=== PATIENT | male | born 1985 | race Caucasian/White ===

== ENCOUNTER 2016-11-10 22:15 | Inpatient (IN) | payer OTHER ==
[~2016-11-10] VITALS: Ht 185.4 cm; Wt 70.3 kg
--- NOTE | 2016-11-10 22:25 | ED.ADGEN ---
Past History Past Medical History: Asthma Past Surgical History: Other Additional Past Surgical Histo: Chest Tube Rt = Pneumothorax Adult General Chief Complaint Chief Complaint "... I...got......bad..... asthma.... I ...get ....really short..... of breath....." HPI HPI Patient is a 31 year old male [facility] prisoner who presents with above hx and complaints of asthma exacerbation starting again two days ago. Pt. has been most recently admitted to [facility] from [facility] were he has been a resident since June of 2015. Pt. states he has 2 or 3 asthma exacerbations a year, with seasonal and weather usually the trigger. Pt,. has never been intubated. Has past hx.of pneumothorax on the right. Pt. states he has been getting sick the past two weeks. Recent transfer in October to [facility]. Patient denies any specific ill contacts. Patient denies any history of immunosuppression. Patient denies any ingestion of illicit substances. Review of Systems Review of Systems Constitutional: Subjective history of fever and chills Eyes: Denies change in visual acuity, redness, or eye pain [] HENT: History of nasal congestion ] Respiratory: History of cough , wheezing and shortness of breath [] Cardiovascular: No additional information not addressed in HPI [] GI: Denies abdominal pain, nausea, vomiting, bloody stools or diarrhea [] : Denies dysuria or hematuria [] Musculoskeletal: Denies back pain or joint pain [] Integument: History of cystic acne Neurologic: Denies headache, focal weakness or sensory changes [] Endocrine: Denies polyuria or polydipsia [] Family History Family History Noncontributory Current Medications Current Medications Current Medications Medications (Trade) Dose Ordered Sig/Gary Start Time Stop Time Status Last Admin Dose Admin Albuterol/ Ipratropium (Duoneb) 3 ml 1X ONCE 11/10/16 23:15 11/10/16 23:16 DC 11/10/16 22:15 3 ML Azithromycin (Zithromax) 500 mg 1X ONCE 11/10/16 22:30 11/10/16 22:31 DC 11/10/16 22:30 500 MG Ceftriaxone Sodium (Rocephin Im) 1 gm 1X ONCE 11/10/16 22:30 11/10/16 22:31 DC Enoxaparin Sodium (Lovenox 80mg Syringe) 80 mg 1X ONCE 11/10/16 23:15 11/10/16 23:16 DC Info (Do NOT chart on this entry -- for MONITORING) 1 each PRN DAILY PRN 11/10/16 23:15 11/12/16 23:14 Iohexol (Omnipaque 300 Mg/ml) 75 ml 1X ONCE 11/10/16 23:15 11/10/16 23:16 DC 11/10/16 23:28 75 ML Lactated Ringer's 1,000 ml @ 1,000 mls/hr Q1H 11/10/16 22:30 11/10/16 23:11 DC 11/10/16 22:30 1,000 MLS/HR Magnesium Sulfate 50 ml @ 25 mls/hr 1X ONCE 11/10/16 22:30 11/11/16 00:29 DC 11/10/16 22:30 25 MLS/HR Allergies Allergies Allergies Coded Allergies Type Severity Reaction Last Updated Verified No Known Drug Allergies 11/10/16 No Physical Exam Physical Exam Constitutional: in acute distress, non-toxic appearance. [] HENT: Normocephalic, atraumatic, bilateral external ears normal, oropharynx dry , no oral exudates, nose normal. [] Eyes: PERRLA, EOMI, conjunctiva normal, no discharge. [] Neck: Normal range of motion, no tenderness, supple, no stridor. [] Cardiovascular: Tachycardic Heart rate regular rhythm, no murmur [] Lungs & Thorax: Bilateral breath sounds marked wheezing on auscultation, patient does have intercostal and supraclavicular retraction, tripod position, . Patient is having pursed lip breathing. Old chest tube scar right chest wall Abdomen: Bowel sounds normal, soft, no tenderness, no masses, no pulsatile masses. [] Skin: Warm, dry, no erythema, cystic acne Back: No tenderness, no CVA tenderness. [] Extremities: No tenderness, no cyanosis, no clubbing, ROM intact, no edema. No cording noted in legs Neurologic: Alert and oriented X 3, normal motor function, normal sensory function, no focal deficits noted. [] Psychologic: Affect normal, judgement normal, mood normal. [] Current Patient Data Vital Signs Vital Signs Date Time Temp Pulse Resp B/P (MAP) Pulse Ox O2 Delivery O2 Flow Rate FiO2 11/10/16 23:30 131 36 98 NonRebreather Mask 12.0 11/10/16 23:00 127/74 (91) 11/10/16 22:20 98.3 Lab Results Laboratory Tests Test 11/10/16 22:25 11/10/16 22:36 Blood pH 7.31 (7.35-7.46) L Blood Gas PCO2 45 mmHg (35-46) Blood Gas PO2 55 mmHg (80-100) L Blood Gas HCO3 23 mmol/L (21-28) Arterial Bld O2 Saturation (Calc) 85 % (92-99) L FiO2 40 % White Blood Count 16.9 x10^3/uL (4.0-11.0) H Red Blood Count 4.79 x10^6/uL (4.30-5.70) Hemoglobin 14.2 g/dL (13.0-17.5) Hematocrit 41.7 % (39.0-53.0) Mean Corpuscular Volume 87 fL (79-100) Mean Corpuscular Hemoglobin 30 pg (25-35) Mean Corpuscular Hemoglobin Concent 34 g/dL (31-37) Red Cell Distribution Width 14.4 % (11.5-14.5) Platelet Count 359 x10^3/uL (140-400) Neutrophils (%) (Auto) 67 % (31-73) Lymphocytes (%) (Auto) 22 % (24-48) L Monocytes (%) (Auto) 5 % (0-9) Eosinophils (%) (Auto) 5 % (0-3) H Basophils (%) (Auto) 1 % (0-3) Neutrophils # (Auto) 11.3 x10^3uL (1.8-7.7) H Lymphocytes # (Auto) 3.8 x10^3/uL (1.0-4.8) Monocytes # (Auto) 0.9 x10^3/uL (0.0-1.1) Eosinophils # (Auto) 0.8 x10^3/uL (0.0-0.7) H Basophils # (Auto) 0.1 x10^3/uL (0.0-0.2) Segmented Neutrophils % 64 % (35-66) Band Neutrophils % 1 % (0-9) Lymphocytes % 28 % (24-48) Monocytes % 3 % (0-10) Eosinophils % 4 % (0-5) Platelet Estimate Adequate (ADEQUATE) Giant Platelets Occ Prothrombin Time 11.0 SEC (9.4-11.4) Prothrombin Time INR 1.1 (0.9-1.1) PTT 22 SEC (23-33) L D-Dimer (Sheri) 1.32 mg/L (0.00-0.50) H Sodium Level 142 mmol/L (136-145) Potassium Level 3.9 mmol/L (3.5-5.1) Chloride Level 104 mmol/L (98-107) Carbon Dioxide Level 26 mmol/L (21-32) Anion Gap 12 (6-14) Blood Urea Nitrogen 5 mg/dL (8-26) L Creatinine 0.9 mg/dL (0.7-1.3) Estimated GFR (Cockcroft-Gault) 99.8 BUN/Creatinine Ratio 6 (6-20) Glucose Level 123 mg/dL (70-99) H Lactic Acid Level 2.7 mmol/L (0.4-2.0) H Calcium Level 9.7 mg/dL (8.5-10.1) Magnesium Level 1.9 mg/dL (1.8-2.4) Total Bilirubin 0.4 mg/dL (0.2-1.0) Direct Bilirubin 0.1 mg/dL (0.0-0.2) Aspartate Amino Transferase (AST) 22 U/L (15-37) Alanine Aminotransferase (ALT) 25 U/L (16-63) Alkaline Phosphatase 119 U/L (46-116) H Creatine Kinase 122 U/L (39-308) Creatine Kinase MB (Mass) 0.7 ng/mL (0.0-3.6) Creatine Kinase MB Relative Index 0.6 % (0-4) Troponin I Quantitative < 0.017 ng/mL (0-0.055) LY-Hgt-J-Type Natriuretic Peptide 87 pg/mL (0-124) Total Protein 8.3 g/dL (6.4-8.2) H Albumin 3.8 g/dL (3.4-5.0) Albumin/Globulin Ratio 0.8 (1.0-1.7) L Lipase 83 U/L (73-393) EKG EKG My interpretation of EKG shows a sinus tachycardia at 110 ,there are no findings of acute STEMI with contralateral changes.[] Radiology/Procedures Radiology/Procedures My interpretation of CXR shows patchy chronic pattern. Viral ? [] Course & Med Decision Making Course & Med Decision Making Pertinent Labs and Imaging studies reviewed. (See chart for details) Critical Care- 90 min. Discussed presentation, testing and treatment plan with Dr. Mariscal. [] Final Impression Final Impression 1. Respiratory Failure- hypoxic and hypercarbic 2. Asthma Exacerbation[] 3. Respiratory and metabolic acidosis 4. Elevated d-dimer 5. Leukocytosis 6..Axillary adenopathy 7. Pulmonary Nodular Changes 8. Elevated lactic acid Problems: Dragon Disclaimer Dragon Disclaimer This electronic medical record was generated, in whole or in part, using a voice recognition dictation system. ANNIA DENNIS MD Nov 10, 2016 22:25
[2016-11-10] MEDS ORDERED: IV RINGERS SOLUTION,LACTATED 1,000 ML IV SCH (22:30)
[2016-11-10] MEDS ORDERED: cefTRIAXone IM 1 GM VIAL IM ONE (22:30)
[2016-11-10] MEDS ORDERED: MAGNESIUM SULFATE 2GM 50 ML IV ONE (22:30)
[2016-11-10] MEDS ORDERED: AZITHROMYCIN 250 MG TABLET. PO ONE (22:30)
[2016-11-10 22:51] LABS: BGAS PH 7.31 (7.35-7.46)
[2016-11-10 22:53] LABS: BASO # 0.1 x10^3/uL (0.0-0.2); BASO % 1 % (0-3); EOS # 0.8 x10^3/uL (0.0-0.7); EOS % 5 % (0-3); HEMATOCRIT 41.7 % (39.0-53.0); HEMOGLOBIN 14.2 g/dL (13.0-17.5); LYMPH # 3.8 x10^3/uL (1.0-4.8); LYMPH % 22 % (24-48); MEAN CORPUSCULAR HEMOGLOBIN 30 pg (25-35); MEAN CORPUSCULAR HGB CONC 34 g/dL (31-37); MEAN CORPUSCULAR VOLUME 87 fL (79-100); MONO # 0.9 x10^3/uL (0.0-1.1); MONO % 5 % (0-9); NEUT # 11.3 x10^3uL (1.8-7.7); NEUT % 67 % (31-73); PLATELET COUNT 359 x10^3/uL (140-400); RED BLOOD COUNT 4.79 x10^6/uL (4.30-5.70); RED CELL DISTRIBUTION WIDTH 14.4 % (11.5-14.5); WHITE BLOOD COUNT 16.9 x10^3/uL (4.0-11.0)
[2016-11-10 23:12] LABS: ALBUMIN 3.8 g/dL (3.4-5.0); ALBUMIN/GLOBULIN RATIO 0.8 (1.0-1.7); CALCIUM 9.7 mg/dL (8.5-10.1); CREATININE 0.9 mg/dL (0.7-1.3); DIRECT BILIRUBIN 0.1 mg/dL (0.0-0.2); GFR 99.8; MAGNESIUM 1.9 mg/dL (1.8-2.4); POTASSIUM 3.9 mmol/L (3.5-5.1); TOTAL BILIRUBIN 0.4 mg/dL (0.2-1.0); TOTAL PROTEIN 8.3 g/dL (6.4-8.2)
[2016-11-10] MEDS ORDERED: CONTRAST GIVEN MC PRN (23:15)
[2016-11-10] MEDS ORDERED: ENOXAPARIN ** NOTE DOSE ** SYRINGE SQ ONE (23:15)
[2016-11-10] MEDS ORDERED: IPRATRPIUM/ALBUTEROL 0.5/2.5MG 3 ML NEBU. NEB ONE (23:15)
[2016-11-10] MEDS ORDERED: IOHEXOL 300 MG/ML 75 ML VIAL. IV ONE (23:15)
[2016-11-10 23:24] LABS: % BANDS 1 % (0-9); % EOS 4 % (0-5); % LYMPHS 28 % (24-48); % MONOS 3 % (0-10); % SEGS 64 % (35-66); PLT ESTIMATE ADEQUATE (ADEQUATE)
[2016-11-11] VITALS (20 sets, daily range): BP systolic 104–119; BP diastolic 52–79
--- NOTE | 2016-11-11 00:07 | RAD ---
INDICATION: [id number] Omni 300 75cc: PE protocol: Chest pain, short of air, cough, elevated d-dimer. COMPARISON: None. TECHNIQUE: Axial CT images obtained through the chest. Intravenous contrast utilized. Angiogram 3D images processed per protocol. One or more of the following individualized dose reduction techniques were utilized for this examination: 1. Automated exposure control; 2. Adjustment of the mA and/or kV according to patient size; 3. Use of iterative reconstruction technique. FINDINGS: Patchy nodular and groundglass opacities bilaterally. No evidence of pneumothorax. No thoracic aortic aneurysm. No evidence of thoracic aortic dissection. There are some mildly enlarged lymph nodes in the axilla bilaterally. For example right axilla measuring up to 14 mm short axis. Callus formation at left fifth rib. Could be from old fracture. No central pulmonary embolus IMPRESSION: 1. No central pulmonary embolus. 2. Patchy nodular groundglass opacities within the bilateral lungs. Could be infectious or inflammatory in nature. Neoplastic causes would be unlikely in a patient of this age unless they have a history of neoplasm. 3. Mildly enlarged bilateral axillary lymph nodes are identified of unknown etiology. Electronically signed by: Ty Infante MD (11/11/2016 12:04 AM) [facility]
[2016-11-11] MEDS ORDERED: ONDANSETRON PF 4 MG/2 ML VIAL. IV PRN (00:30)
[2016-11-11] MEDS ORDERED: IV NORMAL SALINE 1,000ML 1,000 ML IV ONE (00:45)
[2016-11-11] MEDS ORDERED: PANT40TA3 PO (02:10)
[2016-11-11] MEDS ORDERED: MONT10TA9 PO (02:10)
[2016-11-11] MEDS ORDERED: ALBU8.5H8 INH (02:10)
[2016-11-11] MEDS ORDERED: CETI10TA22 PO (02:10)
[2016-11-11 02:55] LABS: BILIRUBIN,URINE NEG (NEG); CLARITY,URINE CLEAR; COLOR,URINE YELLOW; GLUCOSE,URINE NEG (NEG); NITRITE,URINE NEG (NEG); UROBILINOGEN,URINE 0.2 mg/dL (0.2 mg/dL)
[2016-11-11 02:56] LABS: BACTERIA,URINE 0 /HPF (0-FEW); RBC,URINE 0 /HPF (0-2); WBC,URINE RARE /HPF (0-4)
[2016-11-11 03:02] LABS: AMPHETAMINE/METHAMPHETAMINE NEG (NEG); BARBITURATES NEG (NEG); BENZODIAZEPINES NEG (NEG); CANNABINOIDS NEG (NEG); COCAINE NEG (NEG); METHADONE NEG (NEG); OPIATES NEG (NEG); PHENCYCLIDINE NEG (NEG)
[2016-11-11 03:03] LABS: INFLUENZA A PATIENT NEGATIVE (NEGATIVE); INFLUENZA B PATIENT NEGATIVE (NEGATIVE)
[2016-11-11] MEDS ORDERED: ENOXAPARIN ** NOTE DOSE ** SYRINGE SQ ONE (03:30)
[2016-11-11] MEDS ORDERED: IPRATRPIUM/ALBUTEROL 0.5/2.5MG 3 ML NEBU. ONE (03:34)
[2016-11-11] MEDS ORDERED: methylPREDNISolone SOD SUCC PF 125 MG/2 ML VIAL. ONE (03:34)
[2016-11-11] MEDS: IPRATRPIUM/ALBUTEROL 0.5/2.5MG 3 ML NEBU. NEB SCH ×5 (05:05→23:57)
--- NOTE | 2016-11-11 05:57 | EKG ---
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
[2016-11-11] MEDS: methylPREDNISolone SOD SUCC PF 40 MG/ML VIAL. IV SCH (08:08)
[2016-11-11] MEDS: AZITHROMYCIN 250 MG TABLET. PO SCH (08:08)
--- NOTE | 2016-11-11 08:09 | RAD ---
Portable chest, 11/10/2016: History: Shortness of breath, respiratory failure The heart size is normal. The pulmonary vascularity is within normal limits. No pulmonary infiltrates are seen. There is no evidence of pleural fluid. IMPRESSION: No acute cardiopulmonary abnormality is detected.
[2016-11-11] MEDS ORDERED: guaiFENesin/PS-EPHED 600/60MG 1 TAB TAB.ER.12H PO SCH (09:00)
--- NOTE | 2016-11-11 09:13 | RAD ---
Indication elevated d-dimer. Recent travel. Grayscale color Doppler and spectral imaging was performed. The examination was targeted to the veins of the lower extremities. Bilaterally the common femoral, femoral and popliteal vessels demonstrate normal flow compressibility and augmentation. No thrombus is seen. The visualized calf veins, bilaterally, appeared unremarkable. IMPRESSION: Negative bilateral lower extremity venous analysis for DVT
[2016-11-11 11:27] LABS: BASO % 0 % (0-3); EOS % 0 % (0-3); HEMATOCRIT 39.9 % (39.0-53.0); HEMOGLOBIN 13.7 g/dL (13.0-17.5); LYMPH # 0.8 x10^3/uL (1.0-4.8); LYMPH % 11 % (24-48); MEAN CORPUSCULAR HEMOGLOBIN 30 pg (25-35); MEAN CORPUSCULAR HGB CONC 34 g/dL (31-37); MEAN CORPUSCULAR VOLUME 87 fL (79-100); MONO # 0.1 x10^3/uL (0.0-1.1); MONO % 1 % (0-9); NEUT # 6.5 x10^3uL (1.8-7.7); NEUT % 87 % (31-73); PLATELET COUNT 318 x10^3/uL (140-400); RED BLOOD COUNT 4.59 x10^6/uL (4.30-5.70); RED CELL DISTRIBUTION WIDTH 14.5 % (11.5-14.5); WHITE BLOOD COUNT 7.5 x10^3/uL (4.0-11.0)
[2016-11-11 11:41] LABS: ALBUMIN 3.6 g/dL (3.4-5.0); ALBUMIN/GLOBULIN RATIO 0.8 (1.0-1.7); CALCIUM 9.7 mg/dL (8.5-10.1); GFR 88.3; MAGNESIUM 2.3 mg/dL (1.8-2.4); POTASSIUM 4.7 mmol/L (3.5-5.1); TOTAL BILIRUBIN 0.3 mg/dL (0.2-1.0); TOTAL PROTEIN 8.3 g/dL (6.4-8.2)
--- NOTE | 2016-11-11 13:59 | HP ---
ADMIT DATE: 11/11/2016 HISTORY OF PRESENT ILLNESS: The patient is a 31-year-old male patient, [facility] prisoner who has recently moved to [place] about 5 days ago from [facility] where he has been a resident since 06/2015. He was brought to the Emergency Room complaining of shortness of breath, cough with scanty yellowish sputum that has been going on for the last few days. He, however, denied any chills, rigors, or fever. Denied any ill contact, was evaluated in the Emergency Room and was found to have leukocytosis and was admitted with diagnosis of acute asthma exacerbation with acute hypoxic respiratory failure. He has also elevated D-dimer, lactic acidosis. He was treated with albuterol and Atrovent as well as methylprednisone, was given also Lovenox and IV fluid. PAST MEDICAL HISTORY: 1. Significant for spontaneous pneumothorax, status post chest tube placement. 2. Bronchial asthma, started again after spontaneous pneumothorax according to him. PAST SURGICAL HISTORY: Significant for arthroscopic left knee surgery and right wrist fracture, status post open reduction and internal fixation. ALLERGIES: He has no known drug allergies. MEDICATIONS: He is on Singulair 10 mg at bedtime, Protonix 40 mg once a day, Zyrtec 10 mg once a day, ProAir 2 puffs every 6 hours as needed. FAMILY HISTORY: He has 2 older sisters who are healthy. Father at age of 49 in motor vehicle accident. Mother is alive at the age of 54 and is known to have hepatitis C. SOCIAL HISTORY: , has 1 son. He is an ex-smoker, quit in 05/2015 and also used to be a heavy alcohol drinker. He used to smoke methamphetamine. 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 REVIEW OF SYSTEMS: The patient denied any blurring of vision, cataract, glaucoma or macular degeneration. Denied any earache, tinnitus or sensorineural deafness. Denied any nosebleeds, stuffy nose or postnasal drip. Denied any sore throat, sore tongue, toothache, hoarseness of voice or difficulty swallowing. Denied any nausea, vomiting, diarrhea or constipation. Denied any hematemesis, melena or hematochezia. Denied any dysuria, frequency or hematuria. Did complain of shortness of breath on exertion. Denied any orthopnea or paroxysmal nocturnal dyspnea. He did complain of cough with scanty yellowish sputum. Denied any chills, rigors or fever. Denied any dizziness, lightheadedness, or vertigo. PHYSICAL EXAMINATION: GENERAL: On arrival to the Emergency Room, he was somewhat pale, but no jaundice, cyanosis, lymphadenopathy or thyromegaly. No jugular distension. No lower limb edema. VITAL SIGNS: Her heart rate was 64, blood pressure was 116/69, temperature was 98.4, respiratory rate was 19 and oxygen saturation was 99% on room air. HEENT: Showed he is normocephalic, atraumatic. NECK: Supple. HEART: Showed normal first and second heart sounds with no gallop, rub or murmur. CHEST: Shows central trachea, bilaterally equally reduced expansion, reduced air entry, vesicular sounds with bilateral scattered rhonchi. I could not appreciate any crepitation. ABDOMEN: Slightly distended, soft, nontender. No guarding or rigidity. No organomegaly. Hernial orifices intact. Bowel sounds normal. NEUROLOGIC: He was awake, alert, responding appropriately. All cranial nerves intact. EXTREMITIES: He moves extremities without difficulty, ambulates without assistance or assistive devices. His right wrist is in an short forearm cast. LABORATORY DATA: On admission showed that his serum sodium was 142, potassium 3.9, chloride 104, bicarbonate 26, anion gap 12, BUN 5, creatinine 0.9, estimated GFR was 99 mL per minute. His glucose was 123, calcium was 9.7. Magnesium was 1.9. Total bilirubin, AST, ALT, alkaline phosphatase were normal. His total protein was 8.3, albumin 3.8, lipase was 83. His white cell count was 16,900, hemoglobin 14, hematocrit 42, MCV 87 and platelet count 359,000 with normal manual differential. His blood gases showed a pH of 7.31, pCO2 of 45, pO2 of 55, bicarbonate 23, and oxygen saturation was 85% on FiO2 of 40%. His prothrombin time was 11, INR 1.1, aPTT was 22 and D-dimer was 2.3. Urinalysis was unremarkable. Urine was yellow, clear with a pH of 5.5, specific gravity 1.005. The urine was negative for protein, glucose, with trace of protein, negative for blood, nitrite and leukocyte esterase. Urine toxicology screen was negative. His chest x-ray showed that the heart is normal in size and pulmonary vascularity within normal limits. No pulmonary infiltrates are seen. There is no evidence of pleural fluid. Given elevation of his D-dimer, he had a CT scan of the chest with PE protocol, which showed that there was no central pulmonary emboli. It does show patchy nodular ground-glass opacities within the bilateral lungs, could be infectious or inflammatory in nature. Neoplastic cause would be unlikely in a patient of this age unless the ____ mildly enlarged bilaterally axillary lymph nodes identified, unknown etiology. ASSESSMENT AND PLAN: The patient was admitted with acute hypoxic hypercapnic respiratory failure, bronchial asthma exacerbation, has both metabolic and respiratory acidosis, elevated D-dimer, marked leukocytosis, axillary lymphadenopathy, pulmonary nodular changes. PLAN: Continue with bronchodilator. Continue with IV steroids. He is also on IV antibiotic in the form of ceftriaxone and Zithromax. Continue with oxygen supplementation and repeat all his lab work tomorrow and decide on further management accordingly. LENNY ALANIZ MD DR: SHARMIN/felix JOB#: [id number] / [id number]
[2016-11-11] MEDS: BENZONATATE 100 MG CAPSULE. PO PRN (17:30)
[2016-11-11] MEDS: MONTELUKAST 10 MG TABLET. PO SCH (20:52)
[2016-11-11] MEDS: ENOXAPARIN ** NOTE DOSE ** SYRINGE SQ SCH (20:53)
[2016-11-12] VITALS (19 sets, daily range): BP systolic 87–138; BP diastolic 52–85
[2016-11-12] MEDS: IPRATRPIUM/ALBUTEROL 0.5/2.5MG 3 ML NEBU. NEB SCH ×5 (05:47→22:03)
[2016-11-12 06:37] LABS: BASO % 0 % (0-3); EOS % 0 % (0-3); HEMATOCRIT 40.5 % (39.0-53.0); HEMOGLOBIN 13.6 g/dL (13.0-17.5); LYMPH # 1.6 x10^3/uL (1.0-4.8); LYMPH % 12 % (24-48); MEAN CORPUSCULAR HEMOGLOBIN 30 pg (25-35); MEAN CORPUSCULAR HGB CONC 34 g/dL (31-37); MEAN CORPUSCULAR VOLUME 89 fL (79-100); MONO % 8 % (0-9); NEUT # 11.2 x10^3uL (1.8-7.7); NEUT % 81 % (31-73); PLATELET COUNT 337 x10^3/uL (140-400); RED BLOOD COUNT 4.57 x10^6/uL (4.30-5.70); RED CELL DISTRIBUTION WIDTH 15.3 % (11.5-14.5); WHITE BLOOD COUNT 13.9 x10^3/uL (4.0-11.0)
[2016-11-12 06:54] LABS: ALBUMIN 3.8 g/dL (3.4-5.0); ALBUMIN/GLOBULIN RATIO 0.9 (1.0-1.7); CALCIUM 9.5 mg/dL (8.5-10.1); CREATININE 1.1 mg/dL (0.7-1.3); GFR 79.1; POTASSIUM 3.6 mmol/L (3.5-5.1); TOTAL BILIRUBIN 0.2 mg/dL (0.2-1.0); TOTAL PROTEIN 7.9 g/dL (6.4-8.2)
[2016-11-12 08:33] LABS: % LYMPHS 18 % (24-48); % MONOS 10 % (0-10); % SEGS 72 % (35-66); PLT ESTIMATE INCREASED (ADEQUATE)
[2016-11-12] MEDS: BENZONATATE 100 MG CAPSULE. PO PRN (10:01)
[2016-11-12] MEDS: AZITHROMYCIN 250 MG TABLET. PO SCH (10:01)
[2016-11-12] MEDS: ENOXAPARIN ** NOTE DOSE ** SYRINGE SQ SCH (10:02)
[2016-11-12] MEDS: cefTRIAXone IM 1 GM VIAL IM SCH (10:03)
[2016-11-12] MEDS: methylPREDNISolone SOD SUCC PF 40 MG/ML VIAL. IV SCH (10:03)
[2016-11-12] MEDS ORDERED: ENOXAPARIN 40 MG/0.4 ML DISP.SYRIN. SQ SCH (13:30)
[2016-11-12] MEDS: BENZONATATE 100 MG CAPSULE. PO SCH ×3 (14:00→21:17)
[2016-11-12 21:09] LABS: CYCLIC CITRULLIN PEP AB 4 units (0-19)
[2016-11-12] MEDS: ZINC TP SCH (21:17)
[2016-11-12] MEDS: MONTELUKAST 10 MG TABLET. PO SCH (21:17)
[2016-11-12] MEDS: DIPHENHYDRAMINE TP SCH (21:17)
--- NOTE | 2016-11-12 23:17 | PN ---
DATE: 11/12/2016 SUBJECTIVE: The patient is resting, slightly propped up in bed, in no apparent distress. He continued to have cough which is productive with mucopurulent sputum. He stated that he is feeling generally much better. The cough is much less compared to yesterday and more productive. PHYSICAL EXAMINATION: GENERAL: When I examined him, he looked well and was clearly in no apparent respiratory distress, pale. No jaundice, cyanosis, or thyromegaly. No jugular venous distention. No limb edema. VITAL SIGNS: Her heart rate was 103, blood pressure was 109/71, temperature was 97.1, respiratory rate was 17 and oxygen saturation was 97% on 4.5 liters of oxygen. HEAD, EYES, EARS, NOSE AND THROAT: Showed normocephalic and atraumatic. NECK: Supple. HEART: Showed normal first and second heart sounds with no gallop, rub or murmur. CHEST: Shows central trachea, equal bilateral chest expansion, air entry, vesicular sounds. I could not really appreciate any crepitation or rhonchi. ABDOMEN: Distended, soft, nontender. No guarding or rigidity. No organomegaly. Hernial orifices intact. Bowel sounds normal. NEUROLOGIC: He was awake, alert, responding appropriately. Cranial nerves intact. He moves all his extremities without difficulty. He ambulates without assistance or assistive devices. He is in short forearm cast for his right wrist fracture. His skin showed multiple skin lesions consistent with a folliculitis versus acne. His intake over the last 24 hours was 3400, output was 5600. LABORATORY DATA: As of this morning, his serum sodium 142, potassium 3.6, chloride 105, bicarbonate 25, anion gap of 12, BUN 12, creatinine 1.1, estimated GFR was 79 mL per minute. His glucose was 101, calcium was 9.5, magnesium was 2.3. Total bilirubin, AST, ALT, alkaline phosphatase were normal. His total protein was 7.9, albumin 3.8 and TSH was 0.577. His white cell count was slightly high at 13,900, hemoglobin 13.6, hematocrit 40.5, MCV 89 and platelet count 237,000. ASSESSMENT: 1. Acute hypoxic hypercapnic respiratory failure. 2. Bronchial asthma exacerbation, respiratory and metabolic acidosis, elevated D-dimer with negative CT scan and venous Doppler ultrasound for deep venous thrombosis and pulmonary embolism, axillary lymphadenopathy, pulmonary nodular changes. PLAN: To continue with IV steroids, continue bronchodilator. Continue IV antibiotic. Continue oxygen supplementation, titrated down. I will cut down his Lovenox to 40 mg once a day for DVT prophylaxis. Continue the benzonatate as well as Mucinex. LENNY ALANIZ MD DR: SHARMIN/felix JOB#: [id number] / [id number]
[2016-11-13] VITALS (17 sets, daily range): BP systolic 108–132; BP diastolic 63–83
[2016-11-13] MEDS: IPRATRPIUM/ALBUTEROL 0.5/2.5MG 3 ML NEBU. NEB SCH ×4 (06:03→16:03)
[2016-11-13 06:26] LABS: HEMATOCRIT 38.4 % (39.0-53.0); HEMOGLOBIN 12.9 g/dL (13.0-17.5); RED BLOOD COUNT 4.36 x10^6/uL (4.30-5.70); RED CELL DISTRIBUTION WIDTH 14.9 % (11.5-14.5); WHITE BLOOD COUNT 9.9 x10^3/uL (4.0-11.0)
[2016-11-13 06:28] LABS: CALCIUM 9.4 mg/dL (8.5-10.1); CREATININE 0.8 mg/dL (0.7-1.3); GFR 114.3; POTASSIUM 3.6 mmol/L (3.5-5.1)
[2016-11-13 09:09] LABS: ANTI-DS DNA <1 IU/mL (0-9)
[2016-11-13] MEDS: cefTRIAXone IM 1 GM VIAL IM SCH (09:48)
[2016-11-13] MEDS: methylPREDNISolone SOD SUCC PF 40 MG/ML VIAL. IV SCH (09:48)
[2016-11-13] MEDS: DIPHENHYDRAMINE TP SCH (09:49)
[2016-11-13] MEDS: BENZONATATE 100 MG CAPSULE. PO SCH ×2 (09:49→14:11)
[2016-11-13] MEDS: AZITHROMYCIN 250 MG TABLET. PO SCH (09:49)
[2016-11-13] MEDS: ZINC TP SCH (09:49)
[2016-11-13] MEDS ORDERED: ENOXAPARIN 40 MG/0.4 ML DISP.SYRIN. SQ SCH (13:00)
[2016-11-13] MEDS ORDERED: CEFP200T PO (14:26)
[2016-11-13] MEDS ORDERED: AZIT500T PO (14:26)
[2016-11-13] MEDS ORDERED: MONT10TA9 PO (14:26)
[2016-11-13] MEDS ORDERED: IPRA3AMP NEB (14:34)
[2016-11-13 18:08] LABS: ANA INTERP Negative (.)
--- NOTE | 2016-11-13 22:29 | DS ---
DATE OF DISCHARGE: 11/13/2016 HOSPITAL COURSE: The patient is a 31-year-old male patient, an inmate at the [facility], who was admitted with worsening shortness of breath, cough with mucopurulent sputum, has been going on for 2 days prior to admission. He was in fact admitted with acute asthma exacerbation, acute hypoxic hypercapnic respiratory failure, started on IV antibiotic and IV steroids as well as nebulizer which were Atrovent and Singulair. He actually did well, although continued to require oxygen at 3 liters nasal cannula. He desaturates whenever we tried to cut it down. I spoke with the director biologics of all the [facility] and he stated that he would like him to be back in their facility and they were able to provide him with continuous oxygen treatment and continue with antibiotic treatment. PHYSICAL EXAMINATION: GENERAL: When I examined him this afternoon, he looked well and was clearly in no apparent respiratory distress, pale. No jaundice, cyanosis, or thyromegaly. No jugular venous distention. No limb edema. VITAL SIGNS: His heart rate was 93, blood pressure 123/75, temperature was 95, respiratory rate was 20, and oxygen saturation was 95% on 3 liters of oxygen by nasal cannula. HEAD, EYES, EARS, NOSE, AND THROAT: Normocephalic, atraumatic. NECK: Supple. HEART: Showed normal first and second heart sounds with no gallop, rub, or murmur. CHEST: Clear to auscultation. No crepitation or rhonchi. ABDOMEN: Distended, soft, nontender. NEUROLOGIC: He was awake, alert, responding appropriately. Cranial nerves intact. He moves extremities without difficulty, ambulates without assistance or assistive devices. He has severe acneiform lesions throughout his back and anterior chest wall. His intake over the last 24 hours was 1300, output was 4350. His lab work this morning showed a white cell count of 9900, hemoglobin 13, hematocrit 38, MCV 88, and platelet count 302,000. His chemistry showed a serum sodium 141, potassium 3.6, chloride 106, bicarbonate 29, anion gap of 6, BUN 10, creatinine 0.8. Estimated GFR was 114 mL per minute. His glucose was 90 and calcium was 9.4. He was discharged back to [facility] to continue on Zithromax 500 mg once a day for 7 days, cefpodoxime proxetil 200 mg twice a day, ipratropium bromide and albuterol sulfate ____ mL 4 times a day, Singulair 10 mg once a day, albuterol sulfate 2 puffs every 2 hours, cetirizine mg once a day, montelukast sodium 1 tablet at bedtime, and Protonix 40 mg once a day. FINAL DISCHARGE DIAGNOSES: 1. Acute hypoxic hypercapnic respiratory failure. 2. Bronchial asthma exacerbation. 3. Mixed respiratory metabolic acidosis, resolved. 4. Elevated D-dimer with negative CT scan for PE protocol, negative venous Doppler ultrasound for deep vein thrombosis, axillary lymphadenopathy. 5. Pulmonary nodular changes. LENNY ALANIZ MD DR: SHARMIN/felix JOB#: [id number] / [id number]
--- NOTE | 2016-11-14 02:07 | PN ---
DATE: 11/13/2016 SUBJECTIVE: The patient is resting, almost flat in bed, in no apparent distress. He unfortunately continued to be saturating on exertion, his oxygen was cut down to 2.5 liters; however, with exertion, his oxygen saturation drops below 90. PHYSICAL EXAMINATION: GENERAL: When I examined him, he looked well and was clearly in no apparent respiratory distress, pale, no jaundice, cyanosis, or thyromegaly. No jugular venous distention. No limb edema. VITAL SIGNS: His heart rate was 93, blood pressure 123/75, temperature was 98, respiratory rate was 20, and oxygen saturation was 96%, on 3 liters of oxygen by nasal cannula. HEAD, EYES, EARS, NOSE, AND THROAT: Showed normocephalic, atraumatic. NECK: Supple. HEART: Showed normal first and second heart sounds with no gallop, rub or murmur. CHEST: Shows central trachea, equal bilateral expansion, air entry, vesicular breath sounds. No crepitation or rhonchi. ABDOMEN: Scaphoid, soft, and nontender. NEUROLOGIC: He is awake, alert, responding appropriately. Cranial nerves are intact. He moves extremities without difficulty, ambulates without assistance or assistive devices. His intake was 1290 and, output was 4350. LABORATORY DATA: As of this morning, his white cell count is 9900, hemoglobin 12.9, hematocrit 38.4, MCV 88, and platelet count 302,000. His chemistry showed a serum sodium 141, potassium 3.6, chloride 106, bicarbonate 29, anion gap of 6, BUN 10, creatinine 0.8, estimated GFR was 114 mL per minute. His glucose was 90, calcium was 9.4. ASSESSMENT: 1. Acute hypoxic hypercapnic respiratory failure, improving. 2. Bronchial asthma exacerbation. 3. Respiratory metabolic acidosis. 4. Elevated D-dimer with negative CT scan for pulmonary embolism and a negative venous Doppler ultrasound for deep vein thrombosis. 5. Axillary lymphadenopathy. 6. Pulmonary nodular changes. PLAN: Continue with the current plan of management. Continue to titrate her oxygen down and once he did not require any oxygen, he can be discharged. LENNY ALANIZ MD DR: SHARMIN/felix JOB#: [id number] / [id number]
== END 2016-11-13 20:55 | disposition home or self-care (01) | DRG 189 ==
LOC: EEVIPCON 22:15 → ER 22:15 → ICU 11-11 00:10
PROVIDERS: ADMIT Family Medicine; ATTEND Family Medicine
DX: J96.01 Acute respiratory failure with hypoxia (principal); E87.4 Mixed disorder of acid-base balance; J45.901 Unspecified asthma with (acute) exacerbation; J93.83 Other pneumothorax; D72.829 Elevated white blood cell count, unspecified; F15.90 Other stimulant use, unspecified, uncomplicated; R79.1 Abnormal coagulation profile; J96.02 Acute respiratory failure with hypercapnia; R59.0 Localized enlarged lymph nodes; Z87.891 Personal history of nicotine dependence
CPT/HCPCS: 36415; 71010; 71275; 80048; 80053; 80076; 80307; 81001; 82164; 82553; 82803; 82947; 83605; 83690; 83735; 83880; 84443; 84484; 85007; 85025; 85027; 85379; 85610; 85730; 86200; 87040; 87071; 87075; 87205; 87641; 87801; 87804; 93005; 93970; 94250; 94640; 94660; 96365; 96366; 99292; J0456; J0696; J1650; J2920; J3475; J7120; J7620; Q9967; 99291-25; G0479

== ENCOUNTER 2016-12-06 08:53 | Inpatient (IN) | payer OTHER ==
[2016-12-06] VITALS (13 sets, daily range): BP systolic 94–135; BP diastolic 55–93
[~2016-12-06] VITALS: Ht 180.3 cm; Wt 69.9 kg
[~2016-12-06 08:53] MED LIST: ALBU8.5H8 INH; AZIT500T PO; CEFP200T PO; CETI10TA22 PO; IPRA3AMP NEB; MONT10TA9 PO; PANT40TA3 PO
[2016-12-06] MEDS ORDERED: IPRATRPIUM/ALBUTEROL 0.5/2.5MG 3 ML NEBU. NEB ONE (09:00)
[2016-12-06] MEDS ORDERED: IV NORMAL SALINE 1,000ML 1,000 ML IV SCH (09:00)
[2016-12-06] MEDS ORDERED: IPRATRPIUM/ALBUTEROL 0.5/2.5MG 3 ML NEBU. ONE (09:01)
--- NOTE | 2016-12-06 09:07 | PHYS DOC ---
Past History Past Medical History: Asthma Past Surgical History: Other Additional Past Surgical Histo: Chest Tube Rt = Pneumothorax Alcohol Use: None Drug Use: None Adult General Chief Complaint Chief Complaint: ASTHMA HPI HPI Patient is a 31 year old male who presents with complaint of respiratory distress. Patient was brought to the emergency department by EMS from [facility] after they were called there for respiratory distress. The patient was noted to be in severe respiratory distress, tripoding, and satting only 86% on 3 L nasal cannula. Patient has history of asthma and was recently admitted to the hospital on November 11, 2016 for acute respiratory failure. Upon EMS arrival, the patient was given IV Solu-Medrol, IM epinephrine , and started on CPAP. The patient also received DuoNeb and albuterol treatments prior to arrival with minimal relief. The patient currently unable to provide further history due to severe respiratory distress. EMS reports at the patient had been complaining of left-sided chest wall pain for the past 2 days prior to symptom onset. Review of Systems Review of Systems Unable to obtain at this time, patient currently on breathing mask and unable to provide history. Current Medications Current Medications Current Medications Medications (Trade) Dose Ordered Sig/Gary Start Time Stop Time Status Last Admin Dose Admin Albuterol/ Ipratropium (Duoneb) 3 ml 1X ONCE 12/06/16 09:00 12/06/16 09:01 UNV Magnesium Sulfate/ Dextrose 100 ml @ 100 mls/hr 1X ONCE 12/06/16 09:15 12/06/16 10:14 UNV Sodium Chloride 1,000 ml @ 1,000 mls/hr Q1H 12/06/16 09:00 12/06/16 09:59 UNV Allergies Allergies Allergies Coded Allergies Type Severity Reaction Last Updated Verified No Known Drug Allergies 11/10/16 No Physical Exam Physical Exam Constitutional: Alert, afebrile, tachycardic, CPAP mask in place, appears in severe respiratory distress. [] HENT: Normocephalic, atraumatic, bilateral external ears normal, oropharynx moist, no oral exudates, nose normal. [] Eyes: PERRLA, EOMI, conjunctiva normal, no discharge. [] Neck: Normal range of motion, no tenderness, supple, no stridor. [] Cardiovascular: Tachycardia, regular rhythm, no murmur [] Lungs & Thorax: Prolonged expiratory phase, moderate to severe restriction of air movement bilaterally, expiratory wheezes bilaterally, accessory muscle usage present[] Abdomen: Bowel sounds normal, soft, no tenderness, no masses, no pulsatile masses. [] Skin: Warm, dry, no erythema, no rash. [] Back: No tenderness, no CVA tenderness. [] Extremities: No tenderness, no cyanosis, no clubbing, ROM intact, no edema. [] Neurologic: Alert and oriented X 3, normal motor function, normal sensory function, no focal deficits noted. [] Current Patient Data Vital Signs Vital Signs Date Time Temp Pulse Resp B/P (MAP) Pulse Ox O2 Delivery O2 Flow Rate FiO2 12/06/16 08:55 99.0 137 30 94 BiPAP/CPAP Lab Results Laboratory Tests Test 12/06/16 09:02 White Blood Count 19.2 x10^3/uL Red Blood Count 5.04 x10^6/uL Hemoglobin 15.1 g/dL Hematocrit 44.3 % Mean Corpuscular Volume 88 fL Mean Corpuscular Hemoglobin 30 pg Mean Corpuscular Hemoglobin Concent 34 g/dL Red Cell Distribution Width 14.5 % Platelet Count 347 x10^3/uL Neutrophils (%) (Auto) 52 % Lymphocytes (%) (Auto) 26 % Monocytes (%) (Auto) 8 % Eosinophils (%) (Auto) 13 % Basophils (%) (Auto) 1 % Neutrophils # (Auto) 10.0 x10^3uL Lymphocytes # (Auto) 5.0 x10^3/uL Monocytes # (Auto) 1.5 x10^3/uL Eosinophils # (Auto) 2.5 x10^3/uL Basophils # (Auto) 0.1 x10^3/uL Platelet Estimate Pending Sodium Level 141 mmol/L Potassium Level 3.5 mmol/L Chloride Level 104 mmol/L Carbon Dioxide Level 28 mmol/L Anion Gap 9 Blood Urea Nitrogen 10 mg/dL Creatinine 0.8 mg/dL Estimated GFR (Cockcroft-Gault) 114.3 BUN/Creatinine Ratio 13 Glucose Level 139 mg/dL Calcium Level 9.3 mg/dL Total Bilirubin 0.7 mg/dL Aspartate Amino Transf (AST/SGOT) 18 U/L Alanine Aminotransferase (ALT/SGPT) 27 U/L Alkaline Phosphatase 88 U/L Total Protein 7.6 g/dL Albumin 4.1 g/dL Albumin/Globulin Ratio 1.2 ABG significant for PCO2 46. PO2 noted to be 106 on 35% FiO2. Current Medications Medications (Trade) Dose Ordered Sig/Gary Route PRN Reason Start Time Stop Time Status Last Admin Dose Admin Albuterol/ Ipratropium (Duoneb) 3 ml STK-MED ONCE .ROUTE 12/06/16 09:01 12/06/16 09:02 DC Sodium Chloride 1,000 ml @ 1,000 mls/hr Q1H IV 12/06/16 09:00 12/06/16 09:59 12/06/16 09:23 Albuterol/ Ipratropium (Duoneb) 3 ml 1X ONCE NEB 12/06/16 09:00 12/06/16 09:10 DC 12/06/16 09:33 Magnesium Sulfate/ Dextrose 100 ml @ 100 mls/hr 1X ONCE IV 12/06/16 09:15 12/06/16 10:14 12/06/16 09:15 EKG EKG Interpreted by me: Heart rate 139, sinus tachycardia, normal intervals, normal axis, no acute ST/T-wave abnormalities present[] Radiology/Procedures Radiology/[place] [address] IMAGING REPORT Signed PATIENT: CRYSTAL MAJANO ACCOUNT: [id number] : 1985 LOCATION: ER AGE: 31 SEX: M EXAM STATUS: PRE ER ORD. PHYSICIAN: HAWK PELAEZ MD REASON: shortness of breath PROCEDURE: PORTABLE CHEST 1V Chest x-ray Indication: Shortness of breath Technique: Portable AP upright chest x-ray Comparison: Previous study from 11/10/2016 Findings: Heart is normal in size. Lungs are clear. No pneumothorax or pleural effusion. Visualized bony thorax within normal limits. Impression: No acute cardiopulmonary process. No significant change when compared to prior study from 11/11/2016. DICTATED AND SIGNED BY: TOM CROOK DO DATE: 12/06/16923 CC: HAWK PELAEZ MD; PCP,NO ~ [] Course & Med Decision Making Course & Med Decision Making Pertinent Labs and Imaging studies reviewed. (See chart for details) Patient was started on BiPAP therapy and given 1 g of magnesium as well as 1 DuoNeb treatment. The patient's work of breathing has significantly improved at this time. The patient continues to be tachycardic though this has improved to 118 bpm at this time. The patient has been stabilized with BiPAP therapy at this time. The patient will need admission for further treatment. I spoke with Dr. Baker who accepted care of patient in hospital. Critical care time excluding procedures: 40 minutes Dragon Disclaimer Dragon Disclaimer This chart was dictated in whole or in part using Voice Recognition software in a busy, high-work load, and often noisy Emergency Department environment. It may contain unintended and wholly unrecognized errors or omissions. Departure Departure: Impression: Primary Impression: Acute respiratory failure with hypoxia and hypercapnia Additional Impression: Acute severe asthma Disposition: 09 ADMITTED INPATIENT Admitting Physician: Winsome Baker Condition: CRITICAL Referrals: PCP,NO (PCP) Problem Qualifiers HAWK PELAEZ MD Dec 06, 2016 09:07
--- NOTE | 2016-12-06 09:13 | EKG ---
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
[2016-12-06 09:14] LABS: BASO # 0.1 x10^3/uL (0.0-0.2); BASO % 1 % (0-3); EOS # 2.5 x10^3/uL (0.0-0.7); EOS % 13 % (0-3); HEMATOCRIT 44.3 % (39.0-53.0); HEMOGLOBIN 15.1 g/dL (13.0-17.5); LYMPH % 26 % (24-48); MEAN CORPUSCULAR HEMOGLOBIN 30 pg (25-35); MEAN CORPUSCULAR HGB CONC 34 g/dL (31-37); MEAN CORPUSCULAR VOLUME 88 fL (79-100); MONO # 1.5 x10^3/uL (0.0-1.1); MONO % 8 % (0-9); NEUT % 52 % (31-73); PLATELET COUNT 347 x10^3/uL (140-400); RED BLOOD COUNT 5.04 x10^6/uL (4.30-5.70); RED CELL DISTRIBUTION WIDTH 14.5 % (11.5-14.5); WHITE BLOOD COUNT 19.2 x10^3/uL (4.0-11.0)
[2016-12-06] MEDS ORDERED: MAGNESIUM SULFATE 1GM 100 ML IV ONE (09:15)
[2016-12-06 09:28] LABS: ALBUMIN 4.1 g/dL (3.4-5.0); ALBUMIN/GLOBULIN RATIO 1.2 (1.0-1.7); CALCIUM 9.3 mg/dL (8.5-10.1); CREATININE 0.8 mg/dL (0.7-1.3); GFR 114.3; POTASSIUM 3.5 mmol/L (3.5-5.1); TOTAL BILIRUBIN 0.7 mg/dL (0.2-1.0); TOTAL PROTEIN 7.6 g/dL (6.4-8.2)
--- NOTE | 2016-12-06 09:28 | RAD ---
Chest x-ray Indication: Shortness of breath Technique: Portable AP upright chest x-ray Comparison: Previous study from 11/10/2016 Findings: Heart is normal in size. Lungs are clear. No pneumothorax or pleural effusion. Visualized bony thorax within normal limits. Impression: No acute cardiopulmonary process. No significant change when compared to prior study from 11/11/2016.
[2016-12-06 09:53] LABS: BGAS PH 7.38 (7.35-7.46)
[2016-12-06] MEDS ORDERED: ONDANSETRON PF 4 MG/2 ML VIAL. IV PRN (10:00)
[2016-12-06] MEDS ORDERED: ACETAMINOPHEN 325 MG TABLET PO PRN (10:00)
[2016-12-06 10:23] LABS: % BASOS 2 % (0-3); % EOS 7 % (0-5); % LYMPHS 26 % (24-48); % MONOS 16 % (0-10); % SEGS 49 % (35-66); PLT ESTIMATE ADEQUATE (ADEQUATE)
[2016-12-06] MEDS: IPRATRPIUM/ALBUTEROL 0.5/2.5MG 3 ML NEBU. NEB SCH ×3 (11:25→19:57)
[2016-12-06] MEDS ORDERED: methylPREDNISolone SOD SUCC PF 40 MG/ML VIAL. IV SCH (12:00)
[2016-12-06] MEDS ORDERED: ALBU8.5H8 INH (12:01)
[2016-12-06] MEDS ORDERED: PRED20TA PO (12:01)
[2016-12-06] MEDS ORDERED: FLUT1AER8 IH (12:01)
[2016-12-06] MEDS ORDERED: TRET20CR13 TP (12:01)
[2016-12-06] MEDS ORDERED: BENZ60GE TP (12:01)
--- NOTE | 2016-12-06 13:58 | HP ---
ADMIT DATE: 12/06/2016 REASON FOR ADMISSION: Acute hypercapnic respiratory failure. HISTORY OF PRESENT ILLNESS: This is a 31-year-old male who is a [facility] prisoner in [place] and who has had a previous admission on 11/11/2016 for acute hypoxic hypercapnic respiratory failure. Today, [facility] to [facility] with his complaint of respiratory arrest. When EMS arrived, they found him to be satting only 86% on 3 liters, tachycardic and tachypneic. The EMS personnel gave him IV Solu-Medrol, IM epinephrine and he was started on CPAP. He also received a DuoNeb treatment. These only helped minimally and the patient was switched to BiPAP in the Emergency Room. PAST MEDICAL HISTORY: Spontaneous pneumothorax in the past, hospitalization on 11/11/2016 with again hypoxic hypercapnic respiratory failure. He has allergic asthma. PAST SURGICAL HISTORY: Arthroscopic left knee surgery, right wrist fracture, had his open reduction and internal fixation. The fracture was in July and he still has evidently ____, this may be due to his chronic prednisone therapy. ALLERGIES: None. MEDICATIONS: Singulair 10 mg, Zyrtec 10 mg daily, ProAir 2 puffs every 6 hours and prednisone currently on I believe 20 mg a day. FAMILY HISTORY: Two older sisters are healthy. Father at age 49 in a motor vehicle accident. Mother is alive at 54 with hepatitis C. SOCIAL HISTORY: He is , has 1 son, ex-smoker, quit in 2016, also was a heavy alcohol drinker and he used to smoke methamphetamine. 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 REVIEW OF SYSTEMS: Denies sore throat. Denies fever. Positive shortness of breath. He states he may have a lung infection, but no sputum production. The rest is negative. PHYSICAL EXAMINATION: GENERAL: The patient is on BiPAP currently. VITAL SIGNS: Blood pressure 121/77, pulse 115, respirations 20, pulse ox is 97% on BiPAP and CPAP, temperature is 99. HEENT: His throat is clear. He has a lot of mucus. NECK: Supple. LUNGS: Clear on the right, wheezing on the left. CARDIOVASCULAR: Regular rhythm and rate. Anterior left wheezes as well. ABDOMEN: Soft, nontender. EXTREMITIES: Without edema. SKIN: He does have some scarring from acne noted on his face and on his back. LABORATORY DATA: Normal CMP with random glucose, it is slightly elevated at 139. ABG: pCO2 of 47, pO2 108, pH is normal. CBC: White count 19.2, but he has been on prednisone. He also has ____ eosinophils, no bands. ASSESSMENT: 1. Acute hypercapnic respiratory failure. 2. Chronic prednisone therapy. 3. Allergic asthma. 4. Ex-smoker. 5. Right forearm fracture -- present on admission. PLAN: Currently on BiPAP. We will attempt to wean off when he is more comfortable. Continue breathing treatments. Continue with Singulair and IV steroids. MARY VILLASEÑOR DO DR: HOWARD/felix JOB#: [id number] / [id number]
[2016-12-06] MEDS: methylPREDNISolone SOD SUCC PF 125 MG/2 ML VIAL. IV SCH ×2 (14:21→21:12)
[2016-12-06] MEDS: IV NORMAL SALINE 1,000ML 1,000 ML IV SCH ×2 (14:21→20:47)
[2016-12-06] MEDS ORDERED: ALBUTEROL SULFATE 8GM INHALER. INH PRN ×2 (14:30)
[2016-12-06] MEDS ORDERED: CONTRAST GIVEN MC PRN (17:45)
[2016-12-06] MEDS ORDERED: IOHEXOL 300 MG/ML 75 ML VIAL. IV ONE (17:45)
--- NOTE | 2016-12-06 18:29 | RAD ---
CTA Chest with contrast: Clinical History: SHORT OF AIR, RESPIRATORY DISTRESS, ABNORMAL CTA CHEST 3 WEEKS AGO
75MLS OMNI 300 IV CONTRAST
PRIOR CTA CHEST SENT
Shortness of breath. Axial helical images of the chest were obtained after the administration of 75 cc of IV Omni 300 and timed appropriately for a pulmonary arterial study. Conventional axial reconstruction was performed in addition to coronal, sagittal and bilateral oblique MIP (maximum intensity projection). This study was ordered to detect possible pulmonary embolism. There are no filling defects to suggest pulmonary embolism. Description The lungs and pleural margins are clear. There is no mediastinal or hilar lymphadenopathy. The thoracic aorta appears normal. There is bilateral gynecomastia. Impression: 1. No evidence of pulmonary embolism. 2. No acute findings. PQRS Compliance Statement: One or more of the following individualized dose reduction techniques were utilized for this examination: 1. Automated exposure control 2. Adjustment of the mA and/or kV according to patient size 3. Use of iterative reconstruction technique Electronically signed by: Brennon Coyne III, MD (12/06/2016 6:26 PM) [id number]
[2016-12-06 20:03] LABS: BARBITURATES NEG (NEG); BENZODIAZEPINES NEG (NEG); CANNABINOIDS NEG (NEG); COCAINE NEG (NEG); METHADONE NEG (NEG); OPIATES NEG (NEG); PHENCYCLIDINE NEG (NEG)
[2016-12-06 20:07] LABS: BILIRUBIN,URINE NEG (NEG); CLARITY,URINE CLEAR; COLOR,URINE STRAW; GLUCOSE,URINE 100 mg/dL (NEG); NITRITE,URINE NEG (NEG); UROBILINOGEN,URINE 0.2 mg/dL (0.2 mg/dL)
[2016-12-06 20:10] LABS: AMPHETAMINE/METHAMPHETAMINE NEG (NEG)
[2016-12-06 20:14] LABS: BACTERIA,URINE 0 /HPF (0-FEW); RBC,URINE 0 /HPF (0-2); WBC,URINE 0 /HPF (0-4)
[2016-12-06] MEDS: MONTELUKAST 10 MG TABLET. PO SCH (20:48)
[2016-12-07] VITALS (20 sets, daily range): BP systolic 100–154; BP diastolic 49–82
[2016-12-07] MEDS: IV NORMAL SALINE 1,000ML 1,000 ML IV SCH ×2 (02:52→05:37)
[2016-12-07] MEDS: methylPREDNISolone SOD SUCC PF 125 MG/2 ML VIAL. IV SCH ×3 (05:37→20:16)
[2016-12-07] MEDS: IPRATRPIUM/ALBUTEROL 0.5/2.5MG 3 ML NEBU. NEB SCH ×2 (05:59→09:28)
[2016-12-07 08:24] LABS: HEMATOCRIT 39.9 % (39.0-53.0); HEMOGLOBIN 13.6 g/dL (13.0-17.5); RED BLOOD COUNT 4.55 x10^6/uL (4.30-5.70); RED CELL DISTRIBUTION WIDTH 15.2 % (11.5-14.5); WHITE BLOOD COUNT 11.5 x10^3/uL (4.0-11.0)
[2016-12-07] MEDS: CETIRIZINE HCL 10 MG TABLET PO SCH (08:28)
[2016-12-07] MEDS: PANTOPRAZOLE 40 MG TABLET. PO SCH (08:28)
[2016-12-07 08:34] LABS: CALCIUM 8.9 mg/dL (8.5-10.1); CREATININE 0.7 mg/dL (0.7-1.3); GFR 133.3; POTASSIUM 3.8 mmol/L (3.5-5.1)
--- NOTE | 2016-12-07 10:42 | PDOC ---
PROGRESS NOTES Assessment 1. Acute on chronic respiratory failure: Pt is currently requiring 3-4 liters O2 at rest, and after any exertion requires BIPAP and becomes extremely tachypneic. CT angio of the chest failed to reveal any abnormalities. In fact, the ground glass findings and LAD that was seen 3 weeks ago was not present on this exam. Pt reports that for the past 2 years, the only thing that helps at all is high-dose steroids. My plan is to continue IV steroids and bronchodilators. WBC improved, likely steroid-induced. No indication for abx. I will speak w/ pulmonology at [facility] about any additional workup that could be done. I do not think it would be appropriate to discharge him until he is able to exert himself without requiring BIPAP. 2. Right arm fracture: Pt has had a cast since July (per pt). He needs to see ortho nena after discharge. 3. DVT proph: I will start on Lovenox, pt is not moving much. 4. GI proph: W/ high dose steroids, will treat w/ Pepcid daily. 5. DIsp: See above. Problems: Plan of Care: see other orders Subjective Pt reports that he is feeling "a little better," but only while he rests in bed. He denies chest pain. His CXR and CT's have not shown any evidence of cardiac enlargement or aortic issues. He reports having seen pulmonology a few months ago, but says there were several tests ordered and he never had any of them done. Objective Vital Signs Date Time Temp Pulse Resp B/P (MAP) Pulse Ox O2 Delivery O2 Flow Rate FiO2 12/07/16 09:29 97 Nasal Cannula 4.0 12/07/16 09:10 75 20 116/69 (85) 12/07/16 05:59 97.8 Intake and Output 12/08/16 07:00 Intake Total 240 ml Output Total 0 ml Balance 240 ml Intake Oral 240 ml Output Urine Total 0 ml Abdomen: Normal bowel sounds, Soft, No tenderness Heart: Normal S1, Normal S2, No murmurs, Other (Slightly tachy, especially with even minor exertion) Extremities: No edema, Normal pulses General: Alert, Oriented X3, Cooperative, mild distress HEENT: Atraumatic, PERRLA, EOMI, Mucous membr. moist/pink Lungs: Other (Resp effort is mildly labored with mild tachypnea and no retractions. Coarse breath sounds are scattered and improve w/ coughing.) Neck: No JVD, No thyromegaly Neuro: Normal speech, Strength at 5/5 X4 ext, Normal tone, Sensation intact, Cranial nerves 3-12 NL Psych/Mental Status: Mental status NL, Mood NL Skin: No rashes Review of Relevant I have reviewed the following items ny (where applicable) has been applied. Labs Laboratory Tests Test 12/06/16 09:02 12/06/16 09:07 12/06/16 10:45 12/06/16 19:40 White Blood Count 19.2 x10^3/uL (4.0-11.0) Red Blood Count 5.04 x10^6/uL (4.30-5.70) Hemoglobin 15.1 g/dL (13.0-17.5) Hematocrit 44.3 % (39.0-53.0) Mean Corpuscular Volume 88 fL (79-100) Mean Corpuscular Hemoglobin 30 pg (25-35) Mean Corpuscular Hemoglobin Concent 34 g/dL (31-37) Red Cell Distribution Width 14.5 % (11.5-14.5) Platelet Count 347 x10^3/uL (140-400) Neutrophils (%) (Auto) 52 % (31-73) Lymphocytes (%) (Auto) 26 % (24-48) Monocytes (%) (Auto) 8 % (0-9) Eosinophils (%) (Auto) 13 % (0-3) Basophils (%) (Auto) 1 % (0-3) Neutrophils # (Auto) 10.0 x10^3uL (1.8-7.7) Lymphocytes # (Auto) 5.0 x10^3/uL (1.0-4.8) Monocytes # (Auto) 1.5 x10^3/uL (0.0-1.1) Eosinophils # (Auto) 2.5 x10^3/uL (0.0-0.7) Basophils # (Auto) 0.1 x10^3/uL (0.0-0.2) Segmented Neutrophils % 49 % (35-66) Lymphocytes % 26 % (24-48) Monocytes % 16 % (0-10) Eosinophils % 7 % (0-5) Basophils % 2 % (0-3) Platelet Estimate Adequate (ADEQUATE) Sodium Level 141 mmol/L (136-145) Potassium Level 3.5 mmol/L (3.5-5.1) Chloride Level 104 mmol/L (98-107) Carbon Dioxide Level 28 mmol/L (21-32) Anion Gap 9 (6-14) Blood Urea Nitrogen 10 mg/dL (8-26) Creatinine 0.8 mg/dL (0.7-1.3) Estimated GFR (Cockcroft-Gault) 114.3 BUN/Creatinine Ratio 13 (6-20) Glucose Level 139 mg/dL (70-99) Calcium Level 9.3 mg/dL (8.5-10.1) Magnesium Level 2.3 mg/dL (1.8-2.4) Total Bilirubin 0.7 mg/dL (0.2-1.0) Aspartate Amino Transf (AST/SGOT) 18 U/L (15-37) Alanine Aminotransferase (ALT/SGPT) 27 U/L (16-63) Alkaline Phosphatase 88 U/L (46-116) Total Protein 7.6 g/dL (6.4-8.2) Albumin 4.1 g/dL (3.4-5.0) Albumin/Globulin Ratio 1.2 (1.0-1.7) Blood Gas pH 7.38 (7.35-7.46) Blood Gas PCO2 47 mmHg (35-46) Blood Gas PO2 108 mmHg (80-100) Blood Gas HCO3 27 mmol/L (21-28) Arterial Bld O2 Saturation (Calc) 98 % (92-99) FiO2 35 % Nasal Screen MRSA (PCR) Negative (Negative) Urine Collection Type Unknown Urine Color Straw Urine Clarity Clear Urine pH 7.0 Urine Specific [place] 1.010 Urine Protein Neg (NEG-TRACE) Urine Glucose (UA) 100 mg/dL (NEG) Urine Ketones (Stick) Neg mg/dL (NEG) Urine Blood Small (NEG) Urine Nitrite Neg (NEG) Urine Bilirubin Neg (NEG) Urine Urobilinogen Dipstick 0.2 mg/dL (0.2 mg/dL) Urine Leukocyte Esterase Neg (NEG) Urine RBC 0 /HPF (0-2) Urine WBC 0 /HPF (0-4) Urine Squamous Epithelial Cells None /LPF Urine Bacteria 0 /HPF (0-FEW) Urine Opiates Screen Neg (NEG) Urine Methadone Screen Neg (NEG) Urine Barbiturates Neg (NEG) Urine Phencyclidine Screen Neg (NEG) Urine Amphetamine/Methamphetamine Neg (NEG) Urine Benzodiazepines Screen Neg (NEG) Urine Cocaine Screen Neg (NEG) Urine Cannabinoids Screen Neg (NEG) Urine Ethyl Alcohol Neg (NEG) Test 12/07/16 08:15 White Blood Count 11.5 x10^3/uL (4.0-11.0) Red Blood Count 4.55 x10^6/uL (4.30-5.70) Hemoglobin 13.6 g/dL (13.0-17.5) Hematocrit 39.9 % (39.0-53.0) Mean Corpuscular Volume 88 fL (79-100) Mean Corpuscular Hemoglobin 30 pg (25-35) Mean Corpuscular Hemoglobin Concent 34 g/dL (31-37) Red Cell Distribution Width 15.2 % (11.5-14.5) Platelet Count 271 x10^3/uL (140-400) Sodium Level 141 mmol/L (136-145) Potassium Level 3.8 mmol/L (3.5-5.1) Chloride Level 108 mmol/L (98-107) Carbon Dioxide Level 25 mmol/L (21-32) Anion Gap 8 (6-14) Blood Urea Nitrogen 10 mg/dL (8-26) Creatinine 0.7 mg/dL (0.7-1.3) Estimated GFR (Cockcroft-Gault) 133.3 Glucose Level 141 mg/dL (70-99) Calcium Level 8.9 mg/dL (8.5-10.1) Medications Current Medications Albuterol/ Ipratropium (Duoneb) 3 ml STK-MED ONCE .ROUTE ; Start 12/06/16 at 09: 01; Stop 12/06/16 at 09:02; Status DC Sodium Chloride 1,000 ml @ 1,000 mls/hr Q1H IV Last administered on 12/06/16 09:23; Start 12/06/16 at 09:00; Stop 12/06/16 at 10:00; Status DC Albuterol/ Ipratropium (Duoneb) 3 ml 1X ONCE NEB Last administered on 09:33; Start 12/06/16 at 09:00; Stop 12/06/16 at 09:10; Status DC Magnesium Sulfate/ Dextrose 100 ml @ 100 mls/hr 1X ONCE IV Last administered on 12/06/16 09:15; Start 12/06/16 at 09:15; Stop 12/06/16 at 10:14; Status DC Ondansetron HCl (Zofran) 4 mg PRN Q4HRS PRN IV NAUSEA/VOMITING; Start 12/06/16 at 10:00; Stop 12/07/16 at 09:59; Status DC Sodium Chloride 1,000 ml @ 150 mls/hr Q6H40M IV Last administered on 05:37; Start 12/06/16 at 10:00; Stop 12/07/16 at 09:59; Status DC Acetaminophen (Tylenol) 650 mg PRN Q4HRS PRN PO FEVER; Start 12/06/16 at 10:00 ; Stop 12/07/16 at 09:59; Status DC Albuterol/ Ipratropium (Duoneb) 3 ml RTQID NEB Last administered on 12/07/16 09:28; Start 12/06/16 at 12:00; Stop 12/07/16 at 11:59 Methylprednisolone Sodium Succinate (SOLU-Medrol 40MG VIAL) 60 mg Q6HRS IV ; Start 12/06/16 at 12:00; Stop 12/06/16 at 12:00; Status DC Methylprednisolone Sodium Succinate (SOLU-Medrol 125MG VIAL) 125 mg Q8HRS IV Last administered on 12/07/16 05:37; Start 12/06/16 at 14:00 Albuterol Sulfate (Ventolin) 2.5 mg PRN Q4HRS PRN NEB SHORTNESS OF BREATH; Start 12/06/16 at 11:45 Albuterol Sulfate (Ventolin Hfa) 1 puff PRN Q6HRS PRN INH SHORTNESS OF BREATH; Start 12/06/16 at 14:30; Stop 12/06/16 at 14:30; Status DC Albuterol Sulfate (Ventolin Hfa) 2 puff PRN Q6HRS PRN INH SHORTNESS OF BREATH; Start 12/06/16 at 14:30; Stop 12/06/16 at 14:30; Status DC Cetirizine HCl (ZyrTEC) 10 mg DAILY PO Last administered on 12/07/16 08:28; Start 12/07/16 at 09:00 Montelukast Sodium (Singulair) 10 mg QHS PO Last administered on 12/06/16 20: 48; Start 12/06/16 at 21:00 Pantoprazole Sodium (Protonix) 40 mg DAILY PO Last administered on 12/07/16 08 :28; Start 12/07/16 at 09:00 Iohexol (Omnipaque 300 Mg/ml) 75 ml 1X ONCE IV Last administered on 12/06/16 17:59; Start 12/06/16 at 17:45; Stop 12/06/16 at 17:47; Status DC Info (Do NOT chart on this entry -- for MONITORING) 1 each PRN DAILY PRN MC SEE COMMENTS; Start 12/06/16 at 17:45; Stop 12/08/16 at 17:44 Active Scripts Active Duoneb 0.5-3(2.5) Mg/3 Ml (Albuterol/Ipratropium) 3 Ml Ampul.neb 3 Ml NEB QID 30 Days Reported Airduo Respiclick 232-14 Mcg (Fluticasone/Salmeterol) 1 Each Aer.pow.ba 1 Each IH Tretinoin 20 Gm Cream..g. 1 Toy TP QHS Bp Gel (Benzoyl Peroxide) 60 Gm Gel..gram. 60 Gm TP Proair Hfa Inhaler (Albuterol Sulfate) 8.5 Gm Hfa.aer.ad 1 Puff INH PRN Q6HRS PRN Prednisone 20 Mg Tablet 20 Mg PO DAILY Proair Hfa Inhaler (Albuterol Sulfate) 8.5 Gm Hfa.aer.ad 2 Puff INH PRN Q6HRS PRN Protonix (Pantoprazole Sodium) 40 Mg Tablet. 1 Tab PO DAILY Montelukast Sodium Tablet (Montelukast Sodium) 10 Mg Tablet 1 Tab PO DAILY Zyrtec (Cetirizine Hcl) 10 Mg Tablet 1 Tab PO DAILY Vitals/I & O Vital Sign - Last 24 Hours 12/06/16 12/06/16 12/06/16 12/06/16 10:45 11:00 11:00 11:25 Temp 97.9 Pulse 115 113 Resp 20 24 B/P (MAP) 121/77 (92) 128/81 (97) Pulse Ox 95 98 96 O2 Delivery BiPAP/CPAP BiPAP/CPAP Bi-pap 12/06/16 12/06/16 12/06/16 12/06/16 12:00 12:00 12:46 13:06 Temp 97.9 Pulse 109 113 103 Resp 20 22 19 B/P (MAP) 94/57 (69) 128/81 (97) 135/82 (99) Pulse Ox 94 98 97 O2 Delivery Bi-pap Nasal Cannula BiPAP/CPAP Nasal Cannula O2 Flow Rate 3.0 3.0 12/06/16 12/06/16 12/06/16 12/06/16 14:00 15:00 16:10 16:10 Temp 98.0 97.2 Pulse 95 100 105 Resp 18 22 24 B/P (MAP) 103/64 (77) 134/93 (107) 132/89 (103) Pulse Ox 93 94 96 O2 Delivery Nasal Cannula BiPAP/CPAP Bi-pap BiPAP/CPAP O2 Flow Rate 3.0 12/06/16 12/06/16 12/06/16 12/06/16 17:09 17:22 18:50 19:49 Pulse 96 96 Resp 19 24 B/P (MAP) 132/55 (80) 125/79 (94) Pulse Ox 96 94 96 96 O2 Delivery Nasal Cannula BiPAP/CPAP BiPAP/CPAP O2 Flow Rate 4.0 12/06/16 12/06/16 12/06/16 12/06/16 20:00 20:07 20:27 21:01 Temp 97.7 Pulse 104 Resp 20 B/P (MAP) 121/77 (92) Pulse Ox 96 95 O2 Delivery Bi-pap BiPAP/CPAP 12/06/16 12/06/16 12/06/16 12/06/16 22:00 22:11 23:13 23:50 Pulse 117 122 79 Resp 22 17 B/P (MAP) 124/81 (95) 125/88 (100) 113/68 (83) Pulse Ox 96 95 95 98 O2 Delivery BiPAP/CPAP BiPAP/CPAP BiPAP/CPAP 12/07/16 12/07/16 12/07/16 12/07/16 00:12 00:52 01:25 02:00 Pulse 59 54 Resp 14 15 B/P (MAP) 109/63 (78) 103/54 (70) Pulse Ox 97 97 98 O2 Delivery Bi-pap BiPAP/CPAP BiPAP/CPAP 12/07/16 12/07/16 12/07/16 12/07/16 02:58 04:16 04:17 05:06 Pulse 61 110 61 Resp 14 18 18 B/P (MAP) 110/60 (77) 100/49 (66) 109/81 (90) Pulse Ox 97 94 97 O2 Delivery BiPAP/CPAP Nasal Cannula Nasal Cannula BiPAP/CPAP O2 Flow Rate 4.0 4.0 12/07/16 12/07/16 12/07/16 12/07/16 05:59 06:00 07:27 08:20 Temp 97.8 Pulse 86 71 Resp 18 28 B/P (MAP) 119/79 (92) 116/68 (84) Pulse Ox 97 97 97 O2 Delivery BiPAP/CPAP BiPAP/CPAP Bi-pap 12/07/16 12/07/16 12/07/16 12/07/16 08:23 08:33 09:10 09:29 Pulse 97 75 Resp 24 20 B/P (MAP) 116/74 (88) 116/69 (85) Pulse Ox 95 98 97 O2 Delivery Nasal Cannula Room Air BiPAP/CPAP Nasal Cannula O2 Flow Rate 4.0 4.0 4.0 Intake and Output 12/07/16 12/07/16 12/08/16 15:00 23:00 07:00 Intake Total 240 ml Output Total 0 ml Balance 240 ml Images CTA Chest with contrast: Clinical History: SHORT OF AIR, RESPIRATORY DISTRESS, ABNORMAL CTA CHEST 3 WEEKS AGO
75MLS OMNI 300 IV CONTRAST
PRIOR CTA CHEST SENT
Shortness of breath. Axial helical images of the chest were obtained after the administration of 75 cc of IV Omni 300 and timed appropriately for a pulmonary arterial study. Conventional axial reconstruction was performed in addition to coronal, sagittal and bilateral oblique MIP (maximum intensity projection). This study was ordered to detect possible pulmonary embolism. There are no filling defects to suggest pulmonary embolism. Description The lungs and pleural margins are clear. There is no mediastinal or hilar lymphadenopathy. The thoracic aorta appears normal. There is bilateral gynecomastia. Impression: 1. No evidence of pulmonary embolism. 2. No acute findings. PQRS Compliance Statement: One or more of the following individualized dose reduction techniques were utilized for this examination: 1. Automated exposure control 2. Adjustment of the mA and/or kV according to patient size 3. Use of iterative reconstruction technique AINSLEY VILLAFUERTE MD Dec 07, 2016 10:42
[2016-12-07] MEDS: ENOXAPARIN 40 MG/0.4 ML DISP.SYRIN. SQ SCH (12:56)
[2016-12-07] MEDS: BENZONATATE 100 MG CAPSULE. PO SCH ×3 (12:56→20:16)
[2016-12-07] MEDS ORDERED: traMADol 50 MG TABLET PO PRN (14:00)
--- NOTE | 2016-12-07 15:46 | PDOC ---
PROVIDER NOTE PROVIDER NOTE PROVIDER NOTE CARDIOLOGY CONSULTATION NOTE REASON FOR CONSULT: Dyspnea Patient is a pleasant 31 y.o man who presented to the hospital with progressive dyspnea. On 11/10 he was admitted with dyspnea. Found to have approximately 5% eosinophils. Discharged on steroids. While on 40mg daily, he feels fine. When he goes to 20mg he has done poorly Symptoms all started 2 yrs ago after a spontaneous PTX He denies any chest pain now but has cough. No issues while growing up, no history of asthma in the family. No prior diagnosis of granulomatous disease. 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 On singulair. Now on IV steroids and albuterol. ROS: Negative for 12/14 systems reviewed. Exam: Pox-95% on 3L, HR 100, BP-124/78 A/O x 3, NAD CVS: RRR, no m/r/g PULM: Bilateral extensive wheezing and rhonchi. ABD: Soft, NT/ND +BS EXT: No edema. 2+ left radial, PT pulses. NEURO: Non-focal exam. Diagnostic Testing: CTA - No acute pathology. EKG - Unremarkable ABG - High A-a gradient. Normal ph CBC - notable for high wbc with eosinophils noted. Echo - pending Impression: 1. Recurrent hypoxic respiratory failure- highly suspicious for eosinophilic/ allergic issues rather than cardiac disease. He has no murmurs. Recs: 1. If echo normal, would re-discuss with pulmonary regarding bronchoscopy and/ or high resolution chest CT and/or biopsy. 2. If echo is abnormal or he has pulmonary HTN, will then proceed with RHC etc. 3. Low suspicion for shunt, clinically he is quite wheezy and appears to be source of his hypoxia. Thanks for consult. Discussed with Dr. Mariscal. GISELA SCHROEDER MD Dec 07, 2016 15:46
--- NOTE | 2016-12-07 16:29 | CARD ---
APPROVED REPORT EXAM: Two-dimensional and M-mode echocardiogram with Doppler, color Doppler with contrast. Other Information Quality : Average Rhythm : Tachycardia INDICATION Dyspnea Echo Enhancing Agent Indication: Rule Out Septal Defect Agent/Amount Used: Agitated Trntdo1fS 2D DIMENSIONS Left Atrium(2D)2.8 (1.6-4.0cm)IVSd0.6 (0.7-1.1cm) Aortic Root(2D)2.7 (2.0-3.7cm)LVDd5.1 (3.9-5.9cm) LVOT Diameter2.0 (1.8-2.4cm)PWd0.6 (0.7-1.1cm) LVDs3.2 (2.5-4.0cm)FS (%) 36.8 % SV80.6 mlLVEF(%)66.4 (>50%) Aortic Valve AoV Peak Lior.150.0cm/sAoV VTI25.4cm AO Peak GR.9.0mmHgLVOT Peak Lior.114.6cm/s LVOT VTI 19.52cmAO Mean GR.5mmHg RICK (VMAX)2.12fc5JZE (VTI)2.42cm2 Mitral Valve MV E Ytqadvpj77.5cm/sMV DECEL PVRP212de MV A Bqvurdxh936.8cm/sE/A Ratio0.7 LEFT VENTRICLE The left ventricle is normal size. There is normal left ventricular wall thickness. Left ventricle sy stolic function is normal. The Ejection Fraction is 65-70%. There is normal LV segmental wall motion. Tissue Doppler imaging reveals mild left ventricular diastolic dysfunction. Transmitral Doppler flow pattern is Grade I-abnormal relaxation pattern. There is no ventricular septal defect visualized. RIGHT VENTRICLE The right ventricle is normal size. The right ventricular systolic function is normal. ATRIA The left atrium size is normal. The right atrium size is normal. The interatrial septum is intact wit h no evidence for an atrial septal defect or patent foramen ovale as noted on 2-D or Doppler imaging. Injection of bubbles demonstrated a small PFO with right to left shunting. AORTIC VALVE The aortic valve is normal in structure and function. The aortic valve is trileaflet. Doppler and Col or Flow revealed no significant aortic regurgitation. There is no significant aortic valvular stenosi s. MITRAL VALVE The mitral valve is normal in structure and function. There is no mitral valve stenosis. Doppler and Color Flow revealed no mitral valve regurgitation noted. TRICUSPID VALVE The tricuspid valve is normal in structure and function. Doppler and Color Flow revealed no tricuspid valve regurgitation noted. Unable to estimate PA pressure. There is no tricuspid valve stenosis. PULMONIC VALVE The pulmonic valve is not well visualized. Doppler and Color Flow revealed no pulmonic valvular regur gitation. There is no pulmonic valvular stenosis. GREAT VESSELS The aortic root is normal in size. Pulmonary veins not recorded. The IVC is normal in size and collap ses >50% with inspiration. PERICARDIAL EFFUSION There is no evidence of significant pericardial effusion. Critical Notification Critical Value: No <Conclusion> Left ventricle systolic function is normal. The Ejection Fraction is 65-70%. There is normal LV segmental wall motion. The right ventricle is normal size. The interatrial septum is intact with no evidence for an atrial septal defect or patent foramen ovale as noted on 2-D or Doppler imaging. Injection of bubbles demonstrated a small PFO with right to left shunting. Doppler and Color Flow revealed no tricuspid valve regurgitation noted. Unable to estimate PA pressur e. Of note, small size PFO does not account for degree of hypoxia. Plan for transfer to [facility] for RHC and ALF on friday.
[2016-12-07] MEDS: ALBUTEROL SULFATE 2.5 MG/3 ML NEBU. NEB PRN (20:04)
[2016-12-07] MEDS: MONTELUKAST 10 MG TABLET. PO SCH (20:16)
[2016-12-08] VITALS (19 sets, daily range): BP systolic 102–162; BP diastolic 57–93
[2016-12-08] MEDS: ALBUTEROL SULFATE 2.5 MG/3 ML NEBU. NEB PRN ×4 (05:24→20:04)
[2016-12-08] MEDS: methylPREDNISolone SOD SUCC PF 125 MG/2 ML VIAL. IV SCH ×3 (06:02→20:25)
[2016-12-08] MEDS: BENZONATATE 100 MG CAPSULE. PO SCH ×3 (08:35→20:25)
[2016-12-08] MEDS: PANTOPRAZOLE 40 MG TABLET. PO SCH (08:35)
[2016-12-08] MEDS: CETIRIZINE HCL 10 MG TABLET PO SCH (08:36)
[2016-12-08] MEDS: ENOXAPARIN 40 MG/0.4 ML DISP.SYRIN. SQ SCH (12:01)
--- NOTE | 2016-12-08 13:59 | PDOC ---
PROGRESS NOTES Assessment 1. Acute on chronic respiratory failure: Pt is improved today. No BIPAP required. Review of [facility] records performed and are in pt's chart. It appears pt has eosinophilia and severe allergies to several environmental allergens. He was offered Xolair but refused due to cost and risk of SE's. He is on Singulair , Claritin, and is supposed to be on Advair or Symbicort. It was also recommended at some point that he have desensitization performed, but that has not happened. He will need a very long steroid taper and close f/u with pulmonology (and possibly Immunology). Pt may be ready for d/c tomorrow, though I would like him to be off O2, at least at rest. I will add back his home meds. 2. Right arm fracture: Pt has had a cast since July (per pt). He needs to see ortho nena after discharge. 3. DVT proph: Lovenox. CTA neg for PE. 4. GI proph: Continue current meds. 5. Disp: Plan for at least one more night, pt is improving. Taper steroids. Problems: Plan of Care: see other orders Subjective Pt is feeling better today but still extremely SOA when stands up and moves around at all. Pt denies fever, abd pain, vomiting, or MAYA. Pt states he declined Xolair therapy due to the risk of SE's and cost. Objective Vital Signs Date Time Temp Pulse Resp B/P (MAP) Pulse Ox O2 Delivery O2 Flow Rate FiO2 12/08/16 13:04 78 24 141/76 (97) 91 Nasal Cannula 2.0 12/08/16 09:26 97.5 Intake and Output 12/09/16 07:00 Intake Total 540 ml Output Total 700 ml Balance -160 ml Intake Oral 540 ml Output Urine Total 700 ml Abdomen: Soft, No tenderness Heart: Regular rate, Normal S1, Normal S2, No murmurs Extremities: No edema, Normal pulses General: Alert, Oriented X3, Cooperative, No acute distress HEENT: PERRLA, EOMI, Mucous membr. moist/pink Lungs: Other (Scattered expiratory wheezes that improve w/ coughing. Resp effort is non-labored.) Neck: No JVD, No LAD Neuro: Normal speech, Normal tone, Cranial nerves 3-12 NL Psych/Mental Status: Mental status NL, Mood NL Skin: No rashes Review of Relevant I have reviewed the following items ny (where applicable) has been applied. Labs Laboratory Tests Test 12/06/16 19:40 12/07/16 08:15 Urine Collection Type Unknown Urine Color Straw Urine Clarity Clear Urine pH 7.0 Urine Specific Avalon 1.010 Urine Protein Neg (NEG-TRACE) Urine Glucose (UA) 100 mg/dL (NEG) Urine Ketones (Stick) Neg mg/dL (NEG) Urine Blood Small (NEG) Urine Nitrite Neg (NEG) Urine Bilirubin Neg (NEG) Urine Urobilinogen Dipstick 0.2 mg/dL (0.2 mg/dL) Urine Leukocyte Esterase Neg (NEG) Urine RBC 0 /HPF (0-2) Urine WBC 0 /HPF (0-4) Urine Squamous Epithelial Cells None /LPF Urine Bacteria 0 /HPF (0-FEW) Urine Opiates Screen Neg (NEG) Urine Methadone Screen Neg (NEG) Urine Barbiturates Neg (NEG) Urine Phencyclidine Screen Neg (NEG) Urine Amphetamine/Methamphetamine Neg (NEG) Urine Benzodiazepines Screen Neg (NEG) Urine Cocaine Screen Neg (NEG) Urine Cannabinoids Screen Neg (NEG) Urine Ethyl Alcohol Neg (NEG) White Blood Count 11.5 x10^3/uL (4.0-11.0) Red Blood Count 4.55 x10^6/uL (4.30-5.70) Hemoglobin 13.6 g/dL (13.0-17.5) Hematocrit 39.9 % (39.0-53.0) Mean Corpuscular Volume 88 fL (79-100) Mean Corpuscular Hemoglobin 30 pg (25-35) Mean Corpuscular Hemoglobin Concent 34 g/dL (31-37) Red Cell Distribution Width 15.2 % (11.5-14.5) Platelet Count 271 x10^3/uL (140-400) Sodium Level 141 mmol/L (136-145) Potassium Level 3.8 mmol/L (3.5-5.1) Chloride Level 108 mmol/L (98-107) Carbon Dioxide Level 25 mmol/L (21-32) Anion Gap 8 (6-14) Blood Urea Nitrogen 10 mg/dL (8-26) Creatinine 0.7 mg/dL (0.7-1.3) Estimated GFR (Cockcroft-Gault) 133.3 Glucose Level 141 mg/dL (70-99) Calcium Level 8.9 mg/dL (8.5-10.1) Medications Current Medications Albuterol/ Ipratropium (Duoneb) 3 ml STK-MED ONCE .ROUTE ; Start 12/06/16 at 09: 01; Stop 12/06/16 at 09:02; Status DC Sodium Chloride 1,000 ml @ 1,000 mls/hr Q1H IV Last administered on 12/06/16 09:23; Start 12/06/16 at 09:00; Stop 12/06/16 at 10:00; Status DC Albuterol/ Ipratropium (Duoneb) 3 ml 1X ONCE NEB Last administered on 09:33; Start 12/06/16 at 09:00; Stop 12/06/16 at 09:10; Status DC Magnesium Sulfate/ Dextrose 100 ml @ 100 mls/hr 1X ONCE IV Last administered on 12/06/16 09:15; Start 12/06/16 at 09:15; Stop 12/06/16 at 10:14; Status DC Ondansetron HCl (Zofran) 4 mg PRN Q4HRS PRN IV NAUSEA/VOMITING; Start 12/06/16 at 10:00; Stop 12/07/16 at 09:59; Status DC Sodium Chloride 1,000 ml @ 150 mls/hr Q6H40M IV Last administered on 05:37; Start 12/06/16 at 10:00; Stop 12/07/16 at 09:59; Status DC Acetaminophen (Tylenol) 650 mg PRN Q4HRS PRN PO FEVER; Start 12/06/16 at 10:00 ; Stop 12/07/16 at 09:59; Status DC Albuterol/ Ipratropium (Duoneb) 3 ml RTQID NEB Last administered on 12/07/16 09:28; Start 12/06/16 at 12:00; Stop 12/07/16 at 11:59; Status DC Methylprednisolone Sodium Succinate (SOLU-Medrol 40MG VIAL) 60 mg Q6HRS IV ; Start 12/06/16 at 12:00; Stop 12/06/16 at 12:00; Status DC Methylprednisolone Sodium Succinate (SOLU-Medrol 125MG VIAL) 125 mg Q8HRS IV Last administered on 12/08/16 06:02; Start 12/06/16 at 14:00 Albuterol Sulfate (Ventolin) 2.5 mg PRN Q4HRS PRN NEB SHORTNESS OF BREATH Last administered on 12/08/16 09:24; Start 12/06/16 at 11:45 Albuterol Sulfate (Ventolin Hfa) 1 puff PRN Q6HRS PRN INH SHORTNESS OF BREATH; Start 12/06/16 at 14:30; Stop 12/06/16 at 14:30; Status DC Albuterol Sulfate (Ventolin Hfa) 2 puff PRN Q6HRS PRN INH SHORTNESS OF BREATH; Start 12/06/16 at 14:30; Stop 12/06/16 at 14:30; Status DC Cetirizine HCl (ZyrTEC) 10 mg DAILY PO Last administered on 12/08/16 08:36; Start 12/07/16 at 09:00 Montelukast Sodium (Singulair) 10 mg QHS PO Last administered on 12/07/16 20: 16; Start 12/06/16 at 21:00 Pantoprazole Sodium (Protonix) 40 mg DAILY PO Last administered on 12/08/16 08 :35; Start 12/07/16 at 09:00 Iohexol (Omnipaque 300 Mg/ml) 75 ml 1X ONCE IV Last administered on 12/06/16 17:59; Start 12/06/16 at 17:45; Stop 12/06/16 at 17:47; Status DC Info (Do NOT chart on this entry -- for MONITORING) 1 each PRN DAILY PRN MC SEE COMMENTS; Start 12/06/16 at 17:45; Stop 12/08/16 at 17:44 Enoxaparin Sodium (Lovenox) 40 mg Q24H SQ Last administered on 12/08/16 12:01 ; Start 12/07/16 at 11:00 Benzonatate (Tessalon Perle) 100 mg [id number] PO Last administered on 12/08/16 08 :35; Start 12/07/16 at 12:30 Tramadol HCl (Ultram) 50 mg PRN Q6HRS PRN PO PAIN Last administered on 14:09; Start 12/07/16 at 14:00 Active Scripts Active Duoneb 0.5-3(2.5) Mg/3 Ml (Albuterol/Ipratropium) 3 Ml Ampul.neb 3 Ml NEB QID 30 Days Reported Airduo Respiclick 232-14 Mcg (Fluticasone/Salmeterol) 1 Each Aer.pow.ba 1 Each IH Tretinoin 20 Gm Cream..g. 1 Toy TP QHS Bp Gel (Benzoyl Peroxide) 60 Gm Gel..gram. 60 Gm TP Proair Hfa Inhaler (Albuterol Sulfate) 8.5 Gm Hfa.aer.ad 1 Puff INH PRN Q6HRS PRN Prednisone 20 Mg Tablet 20 Mg PO DAILY Proair Hfa Inhaler (Albuterol Sulfate) 8.5 Gm Hfa.aer.ad 2 Puff INH PRN Q6HRS PRN Protonix (Pantoprazole Sodium) 40 Mg Tablet.dr 1 Tab PO DAILY Montelukast Sodium Tablet (Montelukast Sodium) 10 Mg Tablet 1 Tab PO DAILY Zyrtec (Cetirizine Hcl) 10 Mg Tablet 1 Tab PO DAILY Vitals/I & O Vital Sign - Last 24 Hours 12/07/16 12/07/16 12/07/16 12/07/16 14:04 14:09 15:09 15:12 Pulse 89 82 Resp 17 24 B/P (MAP) 131/69 (89) 126/71 (89) Pulse Ox 95 95 97 97 O2 Delivery Nasal Cannula Room Air Room Air Nasal Cannula O2 Flow Rate 4.0 4.0 4.0 4.0 12/07/16 12/07/16 12/07/16 12/07/16 15:39 16:45 16:46 18:14 Temp 97.3 Pulse 80 66 Resp 20 20 B/P (MAP) 141/69 (93) 119/76 (90) Pulse Ox 95 95 97 O2 Delivery Nasal Cannula Nasal Cannula Room Air Nasal Cannula O2 Flow Rate 4.0 4.0 4.0 4.0 12/07/16 12/07/16 12/07/16 12/07/16 19:00 20:00 20:00 20:05 Pulse 84 69 Resp 24 20 B/P (MAP) 133/82 (99) 131/79 (96) Pulse Ox 96 100 98 O2 Delivery Nasal Cannula Nasal Cannula Nasal Cannula Nasal Cannula O2 Flow Rate 4.0 4.0 4.0 4.0 12/07/16 12/07/16 12/07/16 12/08/16 21:00 22:00 23:00 00:01 Pulse 109 70 61 52 Resp 24 20 22 18 B/P (MAP) 145/75 (98) 154/71 (98) 117/56 (76) 118/68 (85) Pulse Ox 94 97 97 99 O2 Delivery Nasal Cannula Nasal Cannula Nasal Cannula Nasal Cannula O2 Flow Rate 4.0 4.0 4.0 4.0 12/08/16 12/08/16 12/08/16 12/08/16 00:59 02:01 03:00 04:00 Pulse 51 48 Resp 16 16 B/P (MAP) 118/60 (79) 116/66 (83) Pulse Ox 97 99 O2 Delivery Nasal Cannula Nasal Cannula Nasal Cannula Nasal Cannula O2 Flow Rate 4.0 4.0 4.0 4.0 12/08/16 12/08/16 12/08/16 12/08/16 04:00 05:00 05:25 06:00 Pulse 101 69 70 Resp 24 18 B/P (MAP) 107/64 (78) 147/81 (103) 122/66 (84) Pulse Ox 92 100 94 95 O2 Delivery Nasal Cannula Nasal Cannula Nasal Cannula Nasal Cannula O2 Flow Rate 4.0 4.0 4.0 4.0 12/08/16 12/08/16 12/08/16 12/08/16 07:50 08:15 09:26 09:26 Temp 97.5 Pulse 59 79 Resp 16 16 B/P (MAP) 118/65 (82) 120/68 (85) Pulse Ox 97 97 96 O2 Delivery Nasal Cannula Nasal Cannula Room Air Nasal Cannula O2 Flow Rate 4.0 4.0 4.0 4.0 12/08/16 12/08/16 12/08/16 12/08/16 10:40 12:02 12:03 13:04 Pulse 69 65 78 Resp 18 18 24 B/P (MAP) 128/60 (82) 102/57 (72) 141/76 (97) Pulse Ox 98 98 91 O2 Delivery Nasal Cannula Nasal Cannula Nasal Cannula Nasal Cannula O2 Flow Rate 3.0 3.0 3.0 2.0 Intake and Output 12/08/16 12/08/16 12/09/16 15:00 23:00 07:00 Intake Total 540 ml Output Total 700 ml Balance -160 ml AINSLEY VILLAFUERTE MD Dec 08, 2016 13:59
[2016-12-08] MEDS: MONTELUKAST 10 MG TABLET. PO SCH (20:25)
[2016-12-09] VITALS (14 sets, daily range): BP systolic 108–137; BP diastolic 53–83
[2016-12-09] MEDS: ALBUTEROL SULFATE 2.5 MG/3 ML NEBU. NEB PRN (05:35)
[2016-12-09] MEDS: methylPREDNISolone SOD SUCC PF 125 MG/2 ML VIAL. IV SCH ×2 (05:48→18:36)
[2016-12-09] MEDS: BENZONATATE 100 MG CAPSULE. PO SCH ×3 (08:30→20:34)
[2016-12-09] MEDS: CETIRIZINE HCL 10 MG TABLET PO SCH (08:30)
[2016-12-09] MEDS: PANTOPRAZOLE 40 MG TABLET. PO SCH (08:30)
[2016-12-09] MEDS ORDERED: FLU VACC QS2017-18 (36MOS+)/PF 0.5 ML SYRINGE. VAX IM ONE (11:00)
[2016-12-09] MEDS: ENOXAPARIN 40 MG/0.4 ML DISP.SYRIN. SQ SCH (11:17)
[2016-12-09] MEDS: MONTELUKAST 10 MG TABLET. PO SCH (20:34)
--- NOTE | 2016-12-10 02:42 | PN ---
DATE: 12/09/2016 SUBJECTIVE: The patient is resting, slightly propped up in bed, in no apparent respiratory distress. He continued to have desaturation on exertion; however, his oxygen saturation is 96% on 3 liters of oxygen. He is not on BiPAP anymore this morning; however, he continued to be on a very high dose of steroid 125 mg IV q.8 hourly. His skin rash has improved dramatically compared to his last visit. PHYSICAL EXAMINATION: GENERAL: When I examined him this afternoon, he looked well and was clearly in no apparent respiratory distress, pale, cushioned, but no jaundice, cyanosis or thyromegaly. No jugular venous distention. No limb edema. VITAL SIGNS: His heart rate was 68, blood pressure 132/80, temperature was 97.5, respiratory rate was 16, and oxygen saturation was 98% on 3 liters of oxygen by nasal cannula. HEAD, EYES, EARS, NOSE AND THROAT: Showed normocephalic, atraumatic. NECK: Supple. HEART: Showed normal first and second heart sounds with no gallop, rub or murmur. CHEST: Clear to auscultation. No crepitation or rhonchi. ABDOMEN: Distended, soft, nontender. No guarding or rigidity. No organomegaly. Hernial orifices intact. Bowel sounds normal. NEUROLOGIC: He was awake, alert, responding appropriately. Cranial nerves intact. He moves extremities without difficulty. His intake over the last 24 hours was 1880, output was 1850. LABORATORY DATA: Showed a white cell count of 11,500, hemoglobin 13.6, hematocrit 39.9, MCV 88 and platelet count 271,000. His chemistry showed a serum sodium 141, potassium 3.8, chloride 108, bicarbonate 25, anion gap of 8, BUN 10, creatinine 0.7, estimated GFR was 133 mL per minute. Glucose was 141, calcium was 8.9. Urinalysis was unremarkable. Toxic screen was unremarkable. My plan is to cut down on his steroids to 60 mg twice a day and hopefully discharge him back tomorrow. ASSESSMENT: 1. Acute on chronic respiratory failure due to severe bronchial asthma. 2. Right arm fracture, has been in the cast since July ____ severe acne, this seems to have improved. He has marked eosinophilia. LENNY ALANIZ MD DR: Elijah JOB#: [id number] / [id number]
[2016-12-10] MEDS: methylPREDNISolone SOD SUCC PF 125 MG/2 ML VIAL. IV SCH (05:44)
[2016-12-10 06:03] VITALS: BP 119/74
[2016-12-10 06:36] LABS: BASO % 0 % (0-3); EOS % 0 % (0-3); HEMATOCRIT 40.8 % (39.0-53.0); HEMOGLOBIN 13.6 g/dL (13.0-17.5); LYMPH # 0.5 x10^3/uL (1.0-4.8); LYMPH % 5 % (24-48); MEAN CORPUSCULAR HEMOGLOBIN 30 pg (25-35); MEAN CORPUSCULAR HGB CONC 33 g/dL (31-37); MEAN CORPUSCULAR VOLUME 89 fL (79-100); MONO # 0.5 x10^3/uL (0.0-1.1); MONO % 5 % (0-9); NEUT # 9.5 x10^3uL (1.8-7.7); NEUT % 90 % (31-73); PLATELET COUNT 233 x10^3/uL (140-400); RED BLOOD COUNT 4.58 x10^6/uL (4.30-5.70); RED CELL DISTRIBUTION WIDTH 14.9 % (11.5-14.5); WHITE BLOOD COUNT 10.6 x10^3/uL (4.0-11.0)
[2016-12-10 06:50] LABS: ALBUMIN 3.1 g/dL (3.4-5.0); ALBUMIN/GLOBULIN RATIO 0.9 (1.0-1.7); CALCIUM 9.1 mg/dL (8.5-10.1); CREATININE 0.7 mg/dL (0.7-1.3); GFR 133.3; POTASSIUM 4.3 mmol/L (3.5-5.1); TOTAL BILIRUBIN 0.4 mg/dL (0.2-1.0); TOTAL PROTEIN 6.4 g/dL (6.4-8.2)
[2016-12-10] MEDS: BENZONATATE 100 MG CAPSULE. PO SCH (07:45)
[2016-12-10] MEDS: CETIRIZINE HCL 10 MG TABLET PO SCH (07:45)
[2016-12-10] MEDS: PANTOPRAZOLE 40 MG TABLET. PO SCH (07:46)
[2016-12-10] MEDS: ENOXAPARIN 40 MG/0.4 ML DISP.SYRIN. SQ SCH (11:00)
[2016-12-10] MEDS ORDERED: PRED50TA PO (12:14)
[2016-12-10 13:00] VITALS: BP 124/69
--- NOTE | 2016-12-11 02:15 | DS ---
DATE OF DISCHARGE: 12/10/2016 HOSPITAL COURSE: The patient is a 31-year-old male, patient who was yet again admitted with acute hypoxic respiratory failure. He was apparently seen at [facility], the patient has severe hypercapnic respiratory failure and severe allergy to several environmental allergens and he was treated with BiPAP initially and then continued on oxygen by nasal cannula, started on tapering course of steroids and did very well. He has a 6-minute walk today and his oxygen saturation remained at 94% on room air on exertion and decision was made to discharge him back home to continue on a tapering course of steroids and to arrange for him to be followed at the [facility]. PHYSICAL EXAMINATION: GENERAL: When I examined him today, he looked well and was clearly in no apparent respiratory distress, pale, but no jaundice, cyanosis, or thyromegaly. No jugular venous distention. No limb edema. VITAL SIGNS: Her heart rate was 46, blood pressure 119/74, temperature was 97.3, respiratory rate was 16, and oxygen saturation was 98%. HEAD, EYES, EARS, NOSE AND THROAT: Showed normocephalic, atraumatic. NECK: Supple. HEART: Showed normal first and second heart sounds with no gallop, rub or murmur. CHEST: Clear to auscultation. No crepitation or rhonchi. ABDOMEN: Distended, soft, nontender. NEUROLOGIC: He is awake, alert, responding appropriately. Cranial nerves intact. He moves extremities without difficulty. 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 His acne has dramatically improved. His intake was 2300, output was 2200. LABORATORY DATA: Her lab work this morning showed a white cell count of 10,000, hemoglobin 13.6, hematocrit 40.8, MCV 89, and platelet count 233,000 with a manual differential showed 90% polymorphs, 5% lymphocytes, and 5% monocytes. His eosinophils have completely disappeared. Serum sodium is 141, potassium 4.3, chloride 106, bicarbonate 31, anion gap of 4, BUN 16, creatinine 0.7, estimated GFR was 133 mL per minute, his glucose 117. Calcium was 9.1. Total bilirubin, AST, ALT, alkaline phosphatase were normal. Total protein 6.4, albumin was 3.1. DISCHARGE MEDICATIONS: The patient will be discharged back to continue on prednisone 50 mg tapering fashion, ProAir 2 puffs every 6 hours as needed, albuterol sulfate by nebulizer, benzoyl peroxide 60 grams apply topically daily, Zyrtec 10 mg once a day, Advair AirDuo RespiClick one inhalation twice a day, ipratropium bromide, albuterol sulfate 4 times a day, Singulair 10 mg at bedtime, Protonix 40 mg once a day, and Tretinoin cream applied topically at bedtime. FINAL DISCHARGE DIAGNOSES: Acute on-chronic hypoxic respiratory failure, improved, acute severe asthma, possible underlying ____ syndrome or allergic bronchopulmonary aspergillosis, right forearm fracture, severe acne that has improved. LENNY ALANIZ MD DR: SHARMIN/felix JOB#: [id number] / [id number]
== END 2016-12-10 14:05 | disposition home or self-care (01) | DRG 189 ==
LOC: ER 08:53 → EEVIPCON 08:53 → ICU 09:45
PROVIDERS: ADMIT Family Medicine; ATTEND Family Medicine
DX: J96.21 Acute and chronic respiratory failure with hypoxia (principal); D72.1 Eosinophilia; J45.909 Unspecified asthma, uncomplicated; J96.22 Acute and chronic respiratory failure with hypercapnia; T38.0X5A Adverse effect of glucocorticoids and synthetic analogues, initial encounter; Z79.52 Long term (current) use of systemic steroids; Z87.891 Personal history of nicotine dependence
CPT/HCPCS: 99291; C8929; 36415; 36600; 71010; 71275; 80048; 80053; 80307; 81001; 82803; 83735; 85007; 85025; 85027; 87641; 90686; 93005; 94250; 94620; 94640; 94660; 96365; J1650; J2930; J3475; J7613; J7620; Q9967; G0479; J7030